=== PATIENT | female | born 1955 | race Caucasian/White ===

== ENCOUNTER 2017-10-07 18:46 | Emergency (ER) | payer OTHER ==
[2017-10-07] MEDS ORDERED: KETOROLAC 30 MG/ML INJ ONE (20:54)
--- NOTE | 2017-10-07 21:00 | ER ---
Nurse's Notes [facility] Name: Prabha Barnes Age: 62 yrs Sex: Female : 1955 Arrival Date: 10/07/2017 Time: 18:55 Bed 30 Private MD: Diagnosis: Pain in left knee Presentation: 10/07 19:09 Presenting complaint: Patient states: LEFT knee pain and swelling x 1 month. Recently hb seen at [facility] for same s/s, told it was arthritis. Immobilizer in place. Transition of care: patient was not received from another setting of care. Onset of symptoms is unknown. Initial Sepsis Screen: Does the patient meet any 2 criteria? No. Patient's initial sepsis screen is negative. Does the patient have a suspected source of infection? No. Patient's initial sepsis screen is negative. Care prior to arrival: None. 19:09 Method Of Arrival: Wheelchair hb 19:09 Acuity: CAITLYN 4 hb Historical: - Allergies: 19:12 NKDA; hb - Home Meds: 19:12 aspirin 81 mg Oral chew 1 tab once daily [Active]; citalopram 40 mg tab 1 tab once hb daily [Active]; docusate sodium 100 mg Oral cap 1 cap once daily [Active]; glimepiride 4 mg Oral tab 1 tab once daily [Active]; Linzess 290 mcg Oral cap 1 cap once daily [Active]; Lipitor 40 mg Oral tab [Active]; Plavix Oral 1 tab once daily [Active]; valsartan 80 mg Oral tab 1 tab once daily [Active]; - PMHx: 19:12 constipation; Diabetes - NIDDM; Depression; TIA; hb - PSHx: 19:12 Right wrist; Heart Cath; ACDF; hb - Immunization history:: Adult Immunizations up to date. - Social history:: Smoking status: Patient/guardian denies using tobacco. Screenin:11 Abuse screen: Denies threats or abuse. Denies injuries from another. Nutritional aj screening: No deficits noted. Tuberculosis screening: No symptoms or risk factors identified. Fall Risk None identified. Assessment: 20:11 General: Appears in no apparent distress. comfortable, Behavior is calm, cooperative, aj appropriate for age. Pain: Complains of pain in left knee. Neuro: Level of Consciousness is awake, alert, obeys commands, Oriented to person, place, time, situation, Appropriate for age. Respiratory: Airway is patent Trachea midline Respiratory effort is even, unlabored, Respiratory pattern is regular, symmetrical. Derm: Skin is intact, is healthy with good turgor, Skin is pink, warm \T\ dry. normal. Musculoskeletal: Circulation, motion, and sensation intact. Range of motion: intact in all extremities, Swelling present in left knee Reports pain in left knee. Vital Signs: 19:10 BP 138 / 70; Pulse 84; Resp 20; Temp 98.5; Pulse Ox 97% ; Weight 112.49 kg; Height 5 hb ft. 2 in. (157.48 cm); Pain 8/10; 21:15 BP 129 / 78; Pulse 81; Resp 18; Pulse Ox 99% on R/A; aj 19:10 Body Mass Index 45.36 (112.49 kg, 157.48 cm) hb ED Course: 18:55 Patient arrived in ED. al2 19:10 Triage completed. hb 19:12 Arm band placed on right wrist. hb 19:56 Jaja Brewer, RN is Primary Nurse. aj 20:11 Patient has correct armband on for positive identification. aj 20:11 No provider procedures requiring assistance completed. Patient did not have IV access aj during this emergency room visit. 20:20 Curly Agosto MD is Attending Physician. tw4 20:59 Farhat Fitzgerald MD is Referral Physician. tw4 21:03 Knee immobilizer applied on left knee. aj 21:15 Crutch training done. aj Administered Medications: 21:02 Drug: TORadol 60 mg Route: IM; Site: right gluteus; aj 21:16 Follow up: Response: Pain is decreased aj Outcome: 20:59 Discharge ordered by . tw4 21:03 Discharged to home ambulatory, with family. aj 21:03 Condition: good 21:03 Discharge instructions given to patient, family, Instructed on discharge instructions, follow up and referral plans. medication usage, Demonstrated understanding of instructions, follow-up care, medications, Prescriptions given X 1. 21:16 Patient left the ED. aj Signatures: Jaja Brewer, ANKITA RN Lindy Chacon RN RN hb Love, Angelica al2 Curly Agosto MD MD tw4
--- NOTE | 2017-10-07 21:00 | EDPHYS ---
Physician Documentation [facility] Name: Prabha Barnes Age: 62 yrs Sex: Female : 1955 Arrival Date: 10/07/2017 Time: 18:55 Bed 30 Private MD: ED Physician Curly Agosto HPI: 10/07 21:15 This 62 yrs old Female presents to ER via Wheelchair with complaints of Knee tw4 Pain. 21:15 The patient presents with decreased range of motion, pain, that is chronic. The tw4 complaints affect the left knee. Onset: The symptoms/episode began/occurred today. Modifying factors: The symptoms are alleviated by nothing. the symptoms are aggravated by nothing. Associated signs and symptoms: The patient has no apparent associated signs or symptoms. Treatment prior to arrival includes: no previous treatment. The patient has not experienced similar symptoms in the past. Historical: - Allergies: 19:12 NKDA; hb - Home Meds: 19:12 aspirin 81 mg Oral chew 1 tab once daily [Active]; citalopram 40 mg tab 1 tab once hb daily [Active]; docusate sodium 100 mg Oral cap 1 cap once daily [Active]; glimepiride 4 mg Oral tab 1 tab once daily [Active]; Linzess 290 mcg Oral cap 1 cap once daily [Active]; Lipitor 40 mg Oral tab [Active]; Plavix Oral 1 tab once daily [Active]; valsartan 80 mg Oral tab 1 tab once daily [Active]; - PMHx: 19:12 constipation; Diabetes - NIDDM; Depression; TIA; hb - PSHx: 19:12 Right wrist; Heart Cath; ACDF; hb - Immunization history:: Adult Immunizations up to date. - Social history:: Smoking status: Patient/guardian denies using tobacco. ROS: 21:15 Constitutional: Negative for fever, chills, and weight loss, Cardiovascular: Negative tw4 for chest pain, palpitations, and edema, Respiratory: Negative for shortness of breath, cough, wheezing, and pleuritic chest pain, Abdomen/GI: Negative for abdominal pain, nausea, vomiting, diarrhea, and constipation. 21:15 MS/extremity: Positive for pain. Exam: 21:15 Constitutional: This is a well developed, well nourished patient who is awake, alert, tw4 and in no acute distress. Head/Face: Normocephalic, atraumatic. Chest/axilla: Normal chest wall appearance and motion. Nontender with no deformity. No lesions are appreciated. Cardiovascular: Regular rate and rhythm with a normal S1 and S2. No gallops, murmurs, or rubs. Normal PMI, no JVD. No pulse deficits. Respiratory: Lungs have equal breath sounds bilaterally, clear to auscultation and percussion. No rales, rhonchi or wheezes noted. No increased work of breathing, no retractions or nasal flaring. Abdomen/GI: Soft, non-tender, with normal bowel sounds. No distension or tympany. No guarding or rebound. No evidence of tenderness throughout. 21:15 Musculoskeletal/extremity: Extremities: noted in the left knee: pain, ROM: limited active range of motion, limited passive range of motion, limited active range of motion due to pain, limited passive range of motion due to pain, Circulation is intact in all extremities. Joints: the left knee displays limited range of motion, painful range of motion, swelling, tenderness, Weight bearing: can bear weight with assistance only. Vital Signs: 19:10 BP 138 / 70; Pulse 84; Resp 20; Temp 98.5; Pulse Ox 97% ; Weight 112.49 kg; Height 5 hb ft. 2 in. (157.48 cm); Pain 8/10; 21:15 BP 129 / 78; Pulse 81; Resp 18; Pulse Ox 99% on R/A; aj 19:10 Body Mass Index 45.36 (112.49 kg, 157.48 cm) hb MDM: 20:20 Patient medically screened. tw4 21:15 Differential diagnosis: dislocation, contusion, tendonitis. Data reviewed: vital signs, tw4 nurses notes. Counseling: I had a detailed discussion with the patient and/or guardian regarding: the historical points, exam findings, and any diagnostic results supporting the discharge/admit diagnosis. Medication response: Toradol markedly relieved the patient's pain. Response to treatment: the patient's symptoms have markedly improved after treatment, and as a result, I will discharge patient. Special discussion: I discussed with the patient/guardian in detail that at this point there is no indication for admission to the hospital. It is understood, however, that if the symptoms persist or worsen the patient needs to return immediately for re-evaluation. 10/07 20:45 Order name: Knee Immobilizer; Complete Time: 21:03 tw4 10/07 21:16 Order name: Crutches; Complete Time: 21:16 aj Administered Medications: 21:02 Drug: TORadol 60 mg Route: IM; Site: right gluteus; aj 21:16 Follow up: Response: Pain is decreased aj Disposition: 10/07/17 20:59 Discharged to Home. Impression: Pain in left knee. - Condition is Stable. - Discharge Instructions: Arthralgia, Arthritis, Nonspecific, Knee Pain, [id number]. - Prescriptions for Diclofenac Sodium 75 mg Oral Tablet Sustained Release - take 1 tablet by ORAL route 2 times per day; 30 tablet. - Medication Reconciliation Form, Thank You Letter, Antibiotic Education, Prescription Opioid Use form. - Follow up: Private Physician; When: As needed; Reason: Recheck today's complaints, Continuance of care, Re-evaluation by your physician. Follow up: Farhat Fitzgerald MD; When: As needed; Reason: Recheck today's complaints, Continuance of care, Re-evaluation by your physician. - Problem is new. - Symptoms have improved. Signatures: Jaja Brewer RN RN aj Baxter, Heather, RN RN hb Wadley, Terrence, MD MD tw4 Corrections: (The following items were deleted from the chart) 21:16 20:59 10/07/2017 20:59 Discharged to Home. Impression: Pain in left knee. Condition is aj Stable. Forms are Medication Reconciliation Form, Thank You Letter, Antibiotic Education, Prescription Opioid Use. Follow up: Private Physician; When: As needed; Reason: Recheck today's complaints, Continuance of care, Re-evaluation by your physician. Follow up: Farhat Fitzgerald; When: As needed; Reason: Recheck today's complaints, Continuance of care, Re-evaluation by your physician. Problem is new. Symptoms have improved. tw4
[2017-10-07 22:20] VITALS: TEMP 98.5
[2017-10-07 22:22] VITALS: BP 129/78; O2SAT 99
== END 2017-10-07 21:16 | disposition home or self-care (01) ==
LOC: ER 18:46
DX: M25.562 Pain in left knee (principal); E11.9 Type 2 diabetes mellitus without complications; Z79.01 Long term (current) use of anticoagulants; Z79.82 Long term (current) use of aspirin; Z86.73 Personal history of transient ischemic attack (TIA), and cerebral infarction without residual deficits
CPT/HCPCS: 96372; 99283

== ENCOUNTER 2018-01-15 16:44 | Emergency (ER) | payer OTHER ==
--- NOTE | 2018-01-15 17:34 | RAD REPORT ---
EXAM DESCRIPTION: CT - Head Brain Wo Cont - 01/15/2018 5:16 pm CLINICAL HISTORY: Slurred speech COMPARISON: None. TECHNIQUE: Axial 5 mm thick images of the head were obtained without IV contrast. All CT scans are performed using dose optimization technique as appropriate and may include automated exposure control or mA/KV adjustment according to patient size. FINDINGS: No intracranial hemorrhage, mass, edema or shift of mid-line structures. No acute infarcti on changes seen. No abnormal extra-axial fluid collections. Ventricles are normal. Mastoid air cells and visualized portions of the paranasal sinuses are clear. No acute bony findings. IMPRESSION: Negative non-contrast CT head examination.
--- NOTE | 2018-01-15 17:35 | RAD REPORT ---
EXAM DESCRIPTION: RAD - Chest Single View - 01/15/2018 5:26 pm CLINICAL HISTORY: Weakness, shortness of breath, slurred speech COMPARISON: August 2016 TECHNIQUE: AP portable chest image was obtained 1715 hour . FINDINGS: Lungs are clear. Lung markings are similar to comparison. Heart and vasculature are normal . No measurable pleural effusion and no pneumothorax. No gross bony abnormality seen. No acute aortic findings suspected. IMPRESSION: No acute cardiopulmonary process. No significant interval change.
[2018-01-15] MEDS ORDERED: ASPIRIN 81 MG CHEWABLE TABLET ONE (18:01)
--- NOTE | 2018-01-15 18:06 | ER ---
Nurse's Notes [facility] Name: Prabha Barnes Age: 62 yrs Sex: Female : 1955 Arrival Date: 01/15/2018 Time: 16:46 Bed 3 Private MD: MARCI LONG Diagnosis: Transient cerebral ischemic attack, unspecified Presentation: 01/15 17:00 Presenting complaint: Patient states: "I had some trouble getting my words out and aj remembering some things." Symptoms started at 1600 but have resolved. Patient denied numbness or tingling. Spouse reports patient has returned to baseline. Transition of care: patient was not received from another setting of care. Onset of symptoms was January 15, 2018 at 16:00. Risk Assessment: Do you want to hurt yourself or someone else? Patient reports no desire to harm self or others. Initial Sepsis Screen: Does the patient meet any 2 criteria? No. Patient's initial sepsis screen is negative. Does the patient have a suspected source of infection? No. Patient's initial sepsis screen is negative. Care prior to arrival: None. 17:00 Method Of Arrival: Ambulatory 17:00 Acuity: CAITLYN 3 aj Triage Assessment: 17:03 General: Appears in no apparent distress. comfortable, Behavior is calm, cooperative, aj appropriate for age. Pain: Denies pain. Neuro: Level of Consciousness is awake, alert, obeys commands, Oriented to person, place, time, situation, Appropriate for age Motor Coach Supervisor are equal bilaterally Moves all extremities. Full function Gait is steady, Speech is normal, Facial symmetry appears normal, Pupils are PERRLA. Respiratory: Airway is patent Respiratory effort is even, unlabored, Respiratory pattern is regular, symmetrical. Derm: Skin is intact, is healthy with good turgor, Skin is pink, warm \\T\\ dry. normal. Historical: - Allergies: 17:03 NKDA; aj - Home Meds: 17:03 aspirin 81 mg Oral chew 1 tab once daily [Active]; citalopram 40 mg tab 1 tab once aj daily [Active]; docusate sodium 100 mg Oral cap 1 cap once daily [Active]; glimepiride 4 mg Oral tab 1 tab once daily [Active]; Linzess 290 mcg Oral cap 1 cap once daily [Active]; Lipitor 40 mg Oral tab [Active]; Plavix Oral 1 tab once daily [Active]; valsartan 80 mg Oral tab 1 tab once daily [Active]; - PMHx: 17:03 constipation; Depression; Diabetes - NIDDM; TIA; aj - PSHx: 17:03 Right wrist; Heart Cath; ACDF; aj - Immunization history:: Adult Immunizations up to date. - Social history:: Smoking status: Patient/guardian denies using tobacco. - Ebola Screening: : Patient negative for fever greater than or equal to 101.5 degrees Fahrenheit, and additional compatible Ebola Virus Disease symptoms Patient denies exposure to infectious person Patient denies travel to an Ebola-affected area in the 21 days before illness onset No symptoms or risks identified at this time. Screenin:40 Abuse screen: Denies threats or abuse. Denies injuries from another. Nutritional jl7 screening: No deficits noted. Tuberculosis screening: No symptoms or risk factors identified. The patient has not been NPO before screening. The patient is currently on the following diet: Regular The patient is alert, able to follow commands. The patient does not exhibit slurred or garbled speech The patient is not exhibiting difficulty speaking. The patient does not exhibit difficulty understanding words. The patient is able to swallow own secretions with no drooling or need for suction. Patient tolerated one teaspoon of water. No drooling, immediate coughing, gurgling, or clearing of the throat was noted. The patient tolerated 90mL of water. No drooling, immediate coughing, gurgling, or clearing of the throat was noted. The patient passed the bedside swallow screening. Oral medications may be given as ordered. Contact Physician for further diet orders. Provider notified of bedside swallow screening results: Jose WALLS. Fall Risk No fall in past 12 months (0 pts). Secondary diagnosis (15 points) TIA, IV access (20 points). Ambulatory Aid- None/Bed Rest/Nurse Assist (0 pts). Gait- Normal/Bed Rest/Wheelchair (0 pts) Mental Status- Oriented to own ability (0 pts). Total Diaz Fall Scale indicates Low Risk Score (25-44 pts). Fall prevention measures have been instituted. Side Rails Up X 2 Placed close to Nursing Station Frequent Obs/Assesments occuring Family Present and informed to notify staff if they need to leave bedside As available Patient and Family Educated on Fall Prevention Program and strategies. Assessment: 17:15 General: Appears in no apparent distress. comfortable, Behavior is calm, cooperative, jl7 appropriate for age. Pain: Denies pain. Neuro: Level of Consciousness is awake, alert, obeys commands, Oriented to person, place, time, situation, Motor Coach Supervisor are equal bilaterally Moves all extremities. Gait is steady, Speech is normal, Facial symmetry appears normal. Cardiovascular: Heart tones S1 S2 present Patient's skin is warm and dry. Respiratory: Airway is patent Respiratory effort is even, unlabored, Respiratory pattern is regular, symmetrical, Breath sounds are clear bilaterally. GI: No signs and/or symptoms were reported involving the gastrointestinal system. : No signs and/or symptoms were reported regarding the genitourinary system. EENT: No signs and/or symptoms were reported regarding the EENT system. Derm: Skin is pink, warm \\T\\ dry. Musculoskeletal: No signs and/or symptoms reported regarding the musculoskeletal system. 18:15 Reassessment: No changes from previously documented assessment. Patient and/or family jl7 updated on plan of care and expected duration. Pain level reassessed. Patient is alert, oriented x 3, equal unlabored respirations, skin warm/dry/pink. 19:25 Reassessment: Patient appears in no apparent distress at this time. Patient and/or iw family updated on plan of care and expected duration. Pain level reassessed. Patient is alert, oriented x 3, equal unlabored respirations, skin warm/dry/pink. [facility] at bedside to transport pt. Pt refuses to be transferred to [facility], states she had a very bad experience there one time and they almost killed her. Jose Samano notified, pt advised that we will have to get acceptance from another [place] or hospital and that will delay her transfer, pt verbalizes understanding, is willing to wait for acceptance to another facility. [facility] leaving now. 20:12 Reassessment: Report called to Latisha Cardenas RN at [facility]. lp1 Vital Signs: 17:03 BP 153 / 77; Pulse 79; Resp 17; Temp 97.5; Pulse Ox 97% on R/A; Weight 113.4 kg; Height aj 5 ft. 2 in. (157.48 cm); 18:00 BP 149 / 72; Pulse 67; Resp 14; Pulse Ox 97% on R/A; jl7 19:00 BP 137 / 78; Pulse 70; Resp 16; Pulse Ox 96% on R/A; jl7 20:01 BP 153 / 87; Pulse 76; Resp 20; Pulse Ox 98% on R/A; Pain 0/10; lp1 17:03 Body Mass Index 45.73 (113.40 kg, 157.48 cm) NIH Stroke Scale Scores: 17:40 NIHSS Score: 0 jl7 17:45 NIHSS Score: 0 ED Course: 16:46 Patient arrived in ED. mr 16:46 MARCI LONG is Private Physician. mr 16:54 Jose Samano PA is PHCP. cp 16:54 Michael Schwab MD is Attending Physician. cp 16:58 Escobar Edmond, ANKITA is Primary Nurse. jl7 17:02 Triage completed. aj 17:03 Arm band placed on left wrist. Patient placed in an exam room. aj 17:15 CT completed. Patient tolerated procedure well. Patient moved to CT via stretcher. wv Patient moved back from CT. 17:15 Patient has correct armband on for positive identification. Placed in gown. Bed in low jl7 position. Call light in reach. Side rails up X2. senior analytic consultant on. Pulse ox on. NIBP on. Warm blanket given. 17:16 CT Head Brain wo Cont In Process Unspecified. EDMS 17:23 X-ray completed. Patient tolerated procedure well. bb2 17:24 XRAY Chest (1 view) In Process Unspecified. EDMS 17:35 EKG done, by fire control technician b. reviewed by Jose WALLS. 3 17:45 Initial lab(s) drawn, by wv, sent to lab. Inserted saline lock: 22 gauge in right jl7 forearm, using aseptic technique. Blood collected. 19:13 Basic Metabolic Panel Sent. jl7 20:01 No provider procedures requiring assistance completed. lp1 20:12 Patient transferred, IV remains in place. lp1 Administered Medications: 17:58 Drug: Aspirin 81 mg Route: PO; jl7 19:13 Follow up: Response: No adverse reaction jl7 Point of Care Testing: Blood Glucose: 17:40 Blood Glucose: 81 mg/dL; jl7 Ranges: Outcome: 18:06 ER care complete, transfer ordered by . cp 20:01 Condition: stable lp1 20:01 Instructed on the need for transfer. 20:12 Transferred by ground EMS to [facility], Transfer form completed. X-rays sent lp1 w/ patient. 20:12 Patient left the ED. lp1 NIH Stroke Scale - NIH Stroke Score Date: 01/15/2018 Time: 17:40 Total Score = 0 1a. Level of Consciousness (LOC) - 0(Alert) 1b. Level of Consciousness (LOC) (Year \\T\\ Age) - 0(Both) 1c. LOC Commands (Open \\T\\ Closes Eyes/Water Resource Agent) - 0(Both) 2. Best Gaze (Lateral Gaze Paresis) - 0(Normal) 3. Visual Field Loss - 0(No visual loss) 4. Facial Palsy - 0(Normal) 5a. Left Arm: Motor (10-second hold) - 0(No drift) 5b. Right Arm: Motor (10-second hold) - 0(No drift) 6a. Left Leg: Motor (5-second hold - always test supine) - 0(No drift) 6b. Right Leg: Motor (5-second hold - always test supine) - 0(No drift) 7. Limb Ataxia (finger/nose \\T\\ heel/duggan - test with eyes open) - 0(Absent) 8. Sensory Loss (pinprick arms/legs/face) - 0(Normal) 9. Best Language: Aphasia (description/naming/reading) - 0(No aphasia) 10. Dysarthria (speech clarity - read or repeat words) - 0(Normal) 11. Extinction and Inattention (visual/tactile/auditory/spatial/personal) - 0(No abnormality) Initials: jl7 NIH Stroke Scale - NIH Stroke Score Date: 01/15/2018 Time: 17:45 Total Score = 0 1a. Level of Consciousness (LOC) - 0(Alert) 1b. Level of Consciousness (LOC) (Year \\T\\ Age) - 0(Both) 1c. LOC Commands (Open \\T\\ Closes Eyes/Water Resource Agent) - 0(Both) 2. Best Gaze (Lateral Gaze Paresis) - 0(Normal) 3. Visual Field Loss - 0(No visual loss) 4. Facial Palsy - 0(Normal) 5a. Left Arm: Motor (10-second hold) - 0(No drift) 5b. Right Arm: Motor (10-second hold) - 0(No drift) 6a. Left Leg: Motor (5-second hold - always test supine) - 0(No drift) 6b. Right Leg: Motor (5-second hold - always test supine) - 0(No drift) 7. Limb Ataxia (finger/nose \\T\\ heel/duggan - test with eyes open) - 0(Absent) 8. Sensory Loss (pinprick arms/legs/face) - 0(Normal) 9. Best Language: Aphasia (description/naming/reading) - 0(No aphasia) 10. Dysarthria (speech clarity - read or repeat words) - 0(Normal) 11. Extinction and Inattention (visual/tactile/auditory/spatial/personal) - 0(No abnormality) Initials: cp Signatures: Dispatcher [employer] Jaja Smith, RN Tyesha Milan Irene, RN Pat Augustin RN RN lp1 Jose Samano PA PA cp Jordan, Nathan nj Leal, Jahala, RN RN jl7 Radha Patterson2 Julienne Darling 3
--- NOTE | 2018-01-15 18:06 | EDPHYS ---
Physician Documentation [facility] Name: Prabha Barnes Age: 62 yrs Sex: Female : 1955 Arrival Date: 01/15/2018 Time: 16:46 Bed 3 Private MD: MARCI LONG ED Physician Michael Schwab HPI: 01/15 17:09 This 62 yrs old Female presents to ER via Ambulatory with complaints of cp Confusion. 17:09 The patient's problem is reported as visual difficulty, blurred vision, weakness, that cp is generalized, aphasia. Onset: The symptoms/episode began/occurred today, at 16:00. Duration: This was a single incident, now resolved. 17:09 Patient's baseline: Neuro: alert and fully oriented, Motor: no deficits, Ambulation: cp walks without assistance, Speech: normal, The patient has a previous history of TIA. Historical: - Allergies: 17:03 NKDA; aj - Home Meds: 17:03 aspirin 81 mg Oral chew 1 tab once daily [Active]; citalopram 40 mg tab 1 tab once aj daily [Active]; docusate sodium 100 mg Oral cap 1 cap once daily [Active]; glimepiride 4 mg Oral tab 1 tab once daily [Active]; Linzess 290 mcg Oral cap 1 cap once daily [Active]; Lipitor 40 mg Oral tab [Active]; Plavix Oral 1 tab once daily [Active]; valsartan 80 mg Oral tab 1 tab once daily [Active]; - PMHx: 17:03 constipation; Depression; Diabetes - NIDDM; TIA; aj - PSHx: 17:03 Right wrist; Heart Cath; ACDF; aj - Immunization history:: Adult Immunizations up to date. - Social history:: Smoking status: Patient/guardian denies using tobacco. - Ebola Screening: : Patient negative for fever greater than or equal to 101.5 degrees Fahrenheit, and additional compatible Ebola Virus Disease symptoms Patient denies exposure to infectious person Patient denies travel to an Ebola-affected area in the 21 days before illness onset No symptoms or risks identified at this time. ROS: 17:12 All other systems are negative. cp Exam: 17:45 Radiologist reports: no acute findings cp 17:45 Head/Face: Normocephalic, atraumatic. Eyes: Pupils equal round and reactive to light, extra-ocular motions intact. Lids and lashes normal. Conjunctiva and sclera are non-icteric and not injected. Cornea within normal limits. Periorbital areas with no swelling, redness, or edema. ENT: Nares patent. No nasal discharge, no septal abnormalities noted. Tympanic membranes are normal and external auditory canals are clear. Oropharynx with no redness, swelling, or masses, exudates, or evidence of obstruction, uvula midline. Mucous membranes moist. Neck: Trachea midline, no thyromegaly or masses palpated, and no cervical lymphadenopathy. Supple, full range of motion without nuchal rigidity, or vertebral point tenderness. No Meningismus. 17:45 Constitutional: The patient appears in no acute distress, alert, awake, non-diaphoretic, non-toxic, well developed, well nourished. 17:45 Chest/axilla: Inspection: normal, Palpation: is normal, no crepitus, no tenderness. 17:45 Cardiovascular: Rate: normal, Rhythm: regular, Pulses: Pulses are 2+ in right radial artery and left radial artery. Heart sounds: murmur, not appreciated, rub, not appreciated, gallop, not appreciated, Edema: is not appreciated, JVD: is not appreciated. 17:45 Respiratory: the patient does not display signs of respiratory distress, Respirations: cp normal, no use of accessory muscles, no retractions, no splinting, no tachypnea, labored breathing, is not present, Breath sounds: are clear throughout, no decreased breath sounds, no stridor, no wheezing. 17:45 Abdomen/GI: Inspection: abdomen appears normal, Bowel sounds: active, all quadrants, Palpation: abdomen is soft and non-tender, in all quadrants, rebound tenderness, is not appreciated, voluntary guarding, is not appreciated, involuntary guarding, is not appreciated. 17:45 Back: pain, is absent, ROM is normal. 17:45 Skin: cellulitis, is not appreciated, no rash present. 17:45 Neuro: Orientation: to person, place \T\ time. Mentation: lucid, able to follow commands, Cerebellar function: is grossly normal, Motor: moves all fours, strength is normal, Sensation: no obvious gross deficits. Vital Signs: 17:03 BP 153 / 77; Pulse 79; Resp 17; Temp 97.5; Pulse Ox 97% on R/A; Weight 113.4 kg; Height aj 5 ft. 2 in. (157.48 cm); 18:00 BP 149 / 72; Pulse 67; Resp 14; Pulse Ox 97% on R/A; jl7 19:00 BP 137 / 78; Pulse 70; Resp 16; Pulse Ox 96% on R/A; jl7 20:01 BP 153 / 87; Pulse 76; Resp 20; Pulse Ox 98% on R/A; Pain 0/10; lp1 17:03 Body Mass Index 45.73 (113.40 kg, 157.48 cm) aj NIH Stroke Scale Scores: 17:40 NIHSS Score: 0 jl7 17:45 NIHSS Score: 0 cp MDM: 16:57 Patient medically screened. cp 17:06 ED course: VSS. Patient is not a candidate for tpa as patient reports symptoms have cp resolved. 17:30 Differential diagnosis: CVA, TIA, metabolic disorder, drug effects. cp 18:04 Data reviewed: vital signs, EKG. cp 18:05 Counseling: I had a detailed discussion with the patient and/or guardian regarding: the cp historical points, exam findings, and any diagnostic results supporting the discharge/admit diagnosis, the presence of at least one elevated blood pressure reading (>120/80) during this emergency department visit, radiology results, the need to transfer to another facility, [facility] does not immediately have the required specialist. 01/15 17:08 Order name: Basic Metabolic Panel cp 01/15 17:08 Order name: CBC with Diff cp 01/15 17:08 Order name: Ckmb cp 01/15 17:08 Order name: CPK cp 01/15 17:08 Order name: LFT's cp 01/15 17:08 Order name: Magnesium cp 01/15 17:08 Order name: NT PRO-BNP cp 01/15 17:08 Order name: PT-INR cp 01/15 17:08 Order name: Ptt, Activated cp 01/15 17:08 Order name: Troponin (emerg Dept Use Only) cp 01/15 17:08 Order name: XRAY Chest (1 view); Complete Time: 17:36 cp 01/15 17:08 Order name: CT Head Brain wo Cont; Complete Time: 17:36 cp 01/15 17:08 Order name: Basic Metabolic Panel EDMS 01/15 17:08 Order name: EKG; Complete Time: 17:08 01/15 17:08 Order name: Cardiac monitoring; Complete Time: 18:00 01/15 17:08 Order name: EKG - Nurse/Tech; Complete Time: 18:00 01/15 17:08 Order name: IV Saline Lock; Complete Time: 17:59 cp 01/15 17:08 Order name: Labs collected and sent; Complete Time: 17:59 cp 01/15 17:08 Order name: O2 Per Protocol; Complete Time: 17:59 cp 01/15 17:08 Order name: O2 Sat Monitoring; Complete Time: 17:59 cp Administered Medications: 17:58 Drug: Aspirin 81 mg Route: PO; jl7 19:13 Follow up: Response: No adverse reaction jl7 Point of Care Testing: Blood Glucose: 17:40 Blood Glucose: 81 mg/dL; jl7 Ranges: Critical Glucose Levels:Adult <50 mg/dl or >400 mg/dl <40 mg/dl or >180 mg/dl Disposition: 18:15 Chart complete. cp Disposition: 01/15/18 18:06 Transfer ordered to [facility]. Diagnosis is Transient cerebral ischemic attack, unspecified. - Reason for transfer: Higher level of care. - Accepting physician is DR River and DR Carbajal. - Condition is Stable. - Problem is new. - Symptoms are resolved. NIH Stroke Scale - NIH Stroke Score Date: 01/15/2018 Time: 17:40 Total Score = 0 1a. Level of Consciousness (LOC) - 0(Alert) 1b. Level of Consciousness (LOC) (Year \T\ Age) - 0(Both) 1c. LOC Commands (Open \T\ Closes Eyes/Pillowcase Sewer) - 0(Both) 2. Best Gaze (Lateral Gaze Paresis) - 0(Normal) 3. Visual Field Loss - 0(No visual loss) 4. Facial Palsy - 0(Normal) 5a. Left Arm: Motor (10-second hold) - 0(No drift) 5b. Right Arm: Motor (10-second hold) - 0(No drift) 6a. Left Leg: Motor (5-second hold - always test supine) - 0(No drift) 6b. Right Leg: Motor (5-second hold - always test supine) - 0(No drift) 7. Limb Ataxia (finger/nose \T\ heel/duggan - test with eyes open) - 0(Absent) 8. Sensory Loss (pinprick arms/legs/face) - 0(Normal) 9. Best Language: Aphasia (description/naming/reading) - 0(No aphasia) 10. Dysarthria (speech clarity - read or repeat words) - 0(Normal) 11. Extinction and Inattention (visual/tactile/auditory/spatial/personal) - 0(No abnormality) Initials: jl7 NIH Stroke Scale - NIH Stroke Score Date: 01/15/2018 Time: 17:45 Total Score = 0 1a. Level of Consciousness (LOC) - 0(Alert) 1b. Level of Consciousness (LOC) (Year \T\ Age) - 0(Both) 1c. LOC Commands (Open \T\ Closes Eyes/Pillowcase Sewer) - 0(Both) 2. Best Gaze (Lateral Gaze Paresis) - 0(Normal) 3. Visual Field Loss - 0(No visual loss) 4. Facial Palsy - 0(Normal) 5a. Left Arm: Motor (10-second hold) - 0(No drift) 5b. Right Arm: Motor (10-second hold) - 0(No drift) 6a. Left Leg: Motor (5-second hold - always test supine) - 0(No drift) 6b. Right Leg: Motor (5-second hold - always test supine) - 0(No drift) 7. Limb Ataxia (finger/nose \T\ heel/duggan - test with eyes open) - 0(Absent) 8. Sensory Loss (pinprick arms/legs/face) - 0(Normal) 9. Best Language: Aphasia (description/naming/reading) - 0(No aphasia) 10. Dysarthria (speech clarity - read or repeat words) - 0(Normal) 11. Extinction and Inattention (visual/tactile/auditory/spatial/personal) - 0(No abnormality) Initials: cp Addendum: 01/19/2018 01:33 Co-signature as Attending Physician, Michael Schwab MD. rn Signatures: Dispatcher [employer] EDJaja Pichardo RN RN aj Nieto, Roman, MD MD rn Pena, Laura, RN RN lp1 Jose Samano PA PA cp Leal, Jahala, RN RN jl7 Corrections: (The following items were deleted from the chart) 01/15 20:12 18:06 01/15/2018 18:06 Transfer ordered to [address] Diagnosis is Transient cerebral ischemic attack, unspecified. Reason for transfer: Higher level of care. Accepting physician is DR River and DR Carbajal. Condition is Stable. Problem is new. Symptoms are resolved. cp
[2018-01-15 18:16] LABS: Absolute Lymphocytes (CBC) 3.8 K/uL (0.7-4.9); Absolute Monocytes 0.6 K/uL (0.1-1.3); Basophils % 0.3 % (0-1.3); Eosinophils % 2.6 % (0-4.4); Hematocrit 38.6 % (36.0-45.0); Lymphocytes % 35.5 % (15.3-44.8); MCH 27.2 pg (27.0-35.0); MCV 83.6 fL (80-100); MPV 8.4 fL (7.6-11.3); Monocytes % 5.4 % (3.3-12.3); RBC Red Blood Cell Count 4.62 M/uL (3.86-4.86)
[2018-01-15 18:18] LABS: Protime INR 0.97
[2018-01-15 18:24] LABS: ALT/SGPT 52 U/L (12-78); AST/SGOT 32 U/L (15-37); Albumin 3.5 g/dL (3.4-5.0); Alkaline Phosphatase 96 U/L (45-117); BUN Blood Urea Nitrogen 14 mg/dL (7-18); Bicarbonate 26 mmol/L (21-32); Bilirubin Direct 0.1 mg/dL (0-0.2); Bilirubin Total 0.4 mg/dL (0.2-1.0); CKMB Creatine Kinase MB < 1.0 ng/mL (0.3-3.6); Creatine Phosphokinase 67 U/L (26-192); Glucose Level 137 mg/dL (74-106); Magnesium 1.9 mg/dL (1.8-2.4); NT PRO-BNP 82 pg/mL (<125); Potassium 3.9 mmol/L (3.5-5.1); Protein, Total 7.5 g/dL (6.4-8.2); Sodium Level 140 mmol/L (136-145)
[2018-01-15 20:24] VITALS: TEMP 97.5
[2018-01-15 20:27] VITALS: BP 153/87; O2SAT 98
--- NOTE | 2018-01-16 16:31 | EKG ---
Test Date: 2018-01-15 Test Time: 17:28:50 Bag Mender: ENDER MEASUREMENT RESULTS: Intervals: Rate: 73 WA: 156 QRSD: 82 QT: 428 QTc: 471 Campus: P: 44 WA: 156 QRS: 15 T: 46 INTERPRETIVE STATEMENTS: Normal sinus rhythm Normal ECG Compared to ECG 09/07/2016 08:24:36 No significant changes Electronically Signed On 01-16-18 16:27:55 CDT by Mario Sal
== END 2018-01-15 20:12 | disposition short-term general hospital (02) ==
LOC: ER 16:44
DX: G45.9 Transient cerebral ischemic attack, unspecified (principal); E11.9 Type 2 diabetes mellitus without complications; F32.9 Major depressive disorder, single episode, unspecified; Z79.01 Long term (current) use of anticoagulants; Z79.82 Long term (current) use of aspirin
CPT/HCPCS: 36415; 70450; 71045; 80048; 80076; 82550; 82553; 82962; 83735; 83880; 84484; 85025; 85610; 85730; 93005; 99285

== ENCOUNTER 2018-04-25 02:10 | Emergency (ER) | payer OTHER ==
[2018-04-25 02:35] LABS: Urine Blood 3+ (NEG); Urine Glucose 3+ (NEG); Urine Protein 1+ (NEG)
[2018-04-25] MEDS ORDERED: HYDROCODONE/APAP 10/325 TAB ONE (02:42)
[2018-04-25 03:21] LABS: Urine Culture Reflex Order NOT NEEDED; Urine RBC >50 /HPF (NONE SEEN)
[2018-04-25 03:22] LABS: Urine Bacteria 20-50 /HPF (<20)
--- NOTE | 2018-04-25 03:52 | ER ---
Nurse's Notes [facility] Name: Prabha Barnes Age: 62 yrs Sex: Female : 1955 Arrival Date: 04/25/2018 Time: 02:13 Bed 19 Private MD: MARCI LONG Diagnosis: Acute tubulo-interstitial nephritis Presentation: 04/25 02:30 Presenting complaint: Patient states: "Ether I have a bad kidney infection or I am jd3 trying to pass a kidney stones because it is really hurting.". Transition of care: patient was not received from another setting of care. Onset of symptoms was April 25, 2018. Risk Assessment: Do you want to hurt yourself or someone else? Patient reports no desire to harm self or others. Initial Sepsis Screen: Does the patient meet any 2 criteria? No. Patient's initial sepsis screen is negative. Does the patient have a suspected source of infection? No. Patient's initial sepsis screen is negative. Care prior to arrival: None. 02:30 Method Of Arrival: Ambulatory jd3 02:30 Acuity: CAITLYN 3 jd3 Historical: - Allergies: 02:43 NKDA; jd3 - Home Meds: 02:43 aspirin 81 mg Oral chew 1 tab once daily [Active]; citalopram 40 mg tab 1 tab once jd3 daily [Active]; docusate sodium 100 mg Oral cap 1 cap once daily [Active]; Linzess 290 mcg Oral cap 1 cap once daily [Active]; Lipitor 40 mg Oral tab [Active]; Plavix Oral 1 tab once daily [Active]; valsartan 80 mg Oral tab 1 tab once daily [Active]; semaglutide injection [Active]; - PMHx: 02:43 constipation; Depression; Diabetes - NIDDM; TIA; jd3 - PSHx: 02:43 Right wrist; Heart Cath; ACDF; jd3 - Immunization history:: Adult Immunizations up to date, Pneumococcal vaccine is up to date, Flu vaccine is up to date. - Social history:: Smoking status: Patient/guardian denies using tobacco, the patient reports quitting approximately 30 years ago. - Ebola Screening: : Patient negative for fever greater than or equal to 101.5 degrees Fahrenheit, and additional compatible Ebola Virus Disease symptoms. Screenin:47 Abuse screen: Denies threats or abuse. Nutritional screening: No deficits noted. jd3 Tuberculosis screening: No symptoms or risk factors identified. Fall Risk Ambulatory Aid- None/Bed Rest/Nurse Assist (0 pts). Gait- Normal/Bed Rest/Wheelchair (0 pts) Mental Status- Oriented to own ability (0 pts). Total Diaz Fall Scale indicates No Risk (0-24 pts). Assessment: 02:46 General: Appears in no apparent distress. uncomfortable, Behavior is calm, cooperative, jd3 appropriate for age. Pain: Complains of pain in anterior aspect of left lateral abdomen Quality of pain is described as sharp. Neuro: Level of Consciousness is awake, alert, obeys commands, Oriented to person, place, time, situation. Cardiovascular: Capillary refill < 3 seconds Patient's skin is warm and dry. Respiratory: Airway is patent Respiratory effort is even, unlabored, Respiratory pattern is regular, symmetrical. GI: No signs and/or symptoms were reported involving the gastrointestinal system. : Reports burning with urination. EENT: No signs and/or symptoms were reported regarding the EENT system. Derm: Skin is intact, Skin is dry, Skin is normal, Skin temperature is warm. Musculoskeletal: Circulation, motion, and sensation intact. Range of motion: intact in all extremities. 03:29 Reassessment: Patient appears in no apparent distress at this time. Patient and/or jd3 family updated on plan of care and expected duration. Pain level reassessed. Patient is alert, oriented x 3, equal unlabored respirations, skin warm/dry/pink. 04:01 Reassessment: Patient appears in no apparent distress at this time. Patient and/or jd3 family updated on plan of care and expected duration. Pain level reassessed. Patient is alert, oriented x 3, equal unlabored respirations, skin warm/dry/pink. reported understanding of discharge instructions. Vital Signs: 02:43 BP 188 / 91; Pulse 104; Resp 19 S; Temp 98.6(O); Pulse Ox 99% on R/A; Weight 107.95 kg jd3 (R); Height 5 ft. 2 in. (157.48 cm) (R); Pain 8/10; 03:29 BP 160 / 70; Pulse 98; Resp 18 S; Pulse Ox 95% on R/A; jd3 02:43 Body Mass Index 43.53 (107.95 kg, 157.48 cm) jd3 ED Course: 02:13 Patient arrived in ED. am2 02:14 MARCI LONG is Private Physician. am2 02:24 Bismark Hussein MD is Attending Physician. gs 02:27 Urine Microscopic Only Sent. ar5 02:27 Urine Culture Sent. ar5 02:29 Baltazar Andrade RN is Primary Nurse. jd3 02:40 Triage completed. jd3 02:45 Arm band placed on. jd3 02:47 Patient has correct armband on for positive identification. Bed in low position. Call j light in reach. Side rails up X 1. 02:49 CT Stone Protocol In Process Unspecified. EDMS 03:02 CT completed. Patient tolerated procedure well. Patient moved to CT via wheelchair. Patient moved back from CT. 04:00 No provider procedures requiring assistance completed. Patient did not have IV access jd3 during this emergency room visit. Administered Medications: 02:37 Drug: Aurora 10 mg-325 mg 1 tabs Route: PO; jd3 03:50 Follow up: Response: No adverse reaction; Pain is decreased jd3 04:01 Drug: KeFLEX 1000 mg Route: PO; jd3 04:02 Follow up: Response: Medication administered at discharge. jd3 Outcome: 03:50 Discharge ordered by . 04:00 Discharged to home ambulatory, with family. jd3 04:00 Condition: stable 04:00 Discharge instructions given to patient, family, Instructed on discharge instructions, follow up and referral plans. medication usage, Demonstrated understanding of instructions, follow-up care, medications, Prescriptions given X 2. 04:02 Patient left the ED. jd3 Addendum: 04/28/2018 16:31 Addendum: Culture Results: Positive urine culture. No further action required. Bacteria i w sensitive to prescribed antibiotic. Signatures: Dispatcher [employer] EDNM Johnnie Stuart Antonieta Whipple, Jaja Nye RN am2 Bismark Hussein MD MD gs Davies, Jonathon, RN RN Maranda Hernandez ar5
--- NOTE | 2018-04-25 03:53 | EDPHYS ---
Physician Documentation [facility] Name: Prabha Barnes Age: 62 yrs Sex: Female : 1955 Arrival Date: 04/25/2018 Time: 02:13 Bed 19 Private MD: MARCI LONG ED Physician Bismark Hussein HPI: 04/25 03:43 This 62 yrs old Female presents to ER via Ambulatory with complaints of Low gs Back Pain, Pain With Urination. 03:43 The patient complains of pain in the right low back. The pain radiates to the abdomen. gs Onset: The symptoms/episode began/occurred yesterday. Modifying factors: The symptoms are alleviated by nothing. the symptoms are aggravated by nothing. Associated signs and symptoms: Pertinent positives: dysuria, Pertinent negatives: fever. Severity of pain: At its worst the pain was moderate in the emergency department the pain is unchanged. The patient has experienced similar episodes in the past, a few times. The patient has not recently seen a physician. Historical: - Allergies: 02:43 NKDA; jd3 - Home Meds: 02:43 aspirin 81 mg Oral chew 1 tab once daily [Active]; citalopram 40 mg tab 1 tab once jd3 daily [Active]; docusate sodium 100 mg Oral cap 1 cap once daily [Active]; Linzess 290 mcg Oral cap 1 cap once daily [Active]; Lipitor 40 mg Oral tab [Active]; Plavix Oral 1 tab once daily [Active]; valsartan 80 mg Oral tab 1 tab once daily [Active]; semaglutide injection [Active]; - PMHx: 02:43 constipation; Depression; Diabetes - NIDDM; TIA; jd3 - PSHx: 02:43 Right wrist; Heart Cath; ACDF; jd3 - Immunization history:: Adult Immunizations up to date, Pneumococcal vaccine is up to date, Flu vaccine is up to date. - Social history:: Smoking status: Patient/guardian denies using tobacco, the patient reports quitting approximately 30 years ago. - Ebola Screening: : Patient negative for fever greater than or equal to 101.5 degrees Fahrenheit, and additional compatible Ebola Virus Disease symptoms. ROS: 03:43 All other systems are negative. gs Exam: 03:43 Head/Face: Normocephalic, atraumatic. Eyes: Pupils equal round and reactive to light, gs extra-ocular motions intact. Lids and lashes normal. Conjunctiva and sclera are non-icteric and not injected. Cornea within normal limits. Periorbital areas with no swelling, redness, or edema. ENT: Nares patent. No nasal discharge, no septal abnormalities noted. Tympanic membranes are normal and external auditory canals are clear. Oropharynx with no redness, swelling, or masses, exudates, or evidence of obstruction, uvula midline. Mucous membranes moist. Neck: Trachea midline, no thyromegaly or masses palpated, and no cervical lymphadenopathy. Supple, full range of motion without nuchal rigidity, or vertebral point tenderness. No Meningismus. Chest/axilla: Normal chest wall appearance and motion. Nontender with no deformity. No lesions are appreciated. Cardiovascular: Regular rate and rhythm with a normal S1 and S2. No gallops, murmurs, or rubs. Normal PMI, no JVD. No pulse deficits. Respiratory: Lungs have equal breath sounds bilaterally, clear to auscultation and percussion. No rales, rhonchi or wheezes noted. No increased work of breathing, no retractions or nasal flaring. Abdomen/GI: Soft, non-tender, with normal bowel sounds. No distension or tympany. No guarding or rebound. No evidence of tenderness throughout. Skin: Warm, dry with normal turgor. Normal color with no rashes, no lesions, and no evidence of cellulitis. MS/ Extremity: Pulses equal, no cyanosis. Neurovascular intact. Full, normal range of motion. Neuro: Awake and alert, GCS 15, oriented to person, place, time, and situation. Cranial nerves II-XII grossly intact. Motor strength 5/5 in all extremities. Sensory grossly intact. Cerebellar exam normal. Normal gait. 03:43 Constitutional: The patient appears alert, awake, uncomfortable. 03:43 Back: CVA tenderness, that is moderate, is noted on the right. Vital Signs: 02:43 BP 188 / 91; Pulse 104; Resp 19 S; Temp 98.6(O); Pulse Ox 99% on R/A; Weight 107.95 kg jd3 (R); Height 5 ft. 2 in. (157.48 cm) (R); Pain 8/10; 03:29 BP 160 / 70; Pulse 98; Resp 18 S; Pulse Ox 95% on R/A; jd3 02:43 Body Mass Index 43.53 (107.95 kg, 157.48 cm) jd3 MDM: 02:27 Patient medically screened. 03:43 Differential diagnosis: nephrolithiasis, pyelonephritis, UTI. Data reviewed: vital gs signs, nurses notes. Response to treatment: the patient's symptoms have markedly improved after treatment, and as a result, I will discharge patient. 04/25 02:22 Order name: Urine Culture snw 04/25 02:22 Order name: Urine Microscopic Only; Complete Time: 03:52 snw 04/25 02:27 Order name: CT Stone Protocol 04/25 02:31 Order name: Urine Dipstick--Ancillary (enter results); Complete Time: 03:52 ar5 04/25 02:22 Order name: Urine Dipstick-Ancillary (obtain specimen); Complete Time: 02:27 snw Administered Medications: 02:37 Drug: Orient 10 mg-325 mg 1 tabs Route: PO; jd3 03:50 Follow up: Response: No adverse reaction; Pain is decreased jd3 04:01 Drug: KeFLEX 1000 mg Route: PO; jd3 04:02 Follow up: Response: Medication administered at discharge. jd3 Disposition: 04/25/18 03:50 Discharged to Home. Impression: Acute tubulo-interstitial nephritis. - Condition is Stable. - Discharge Instructions: Pyelonephritis, Adult. - Prescriptions for Keflex 500 mg Oral Capsule - take 2 capsule by ORAL route every 12 hours for 10 days; 40 capsule. Tylenol- Codeine #4 300-60 mg Oral Tablet - take 1 tablet by ORAL route every 6 hours As needed; 12 tablet. - Medication Reconciliation Form, Thank You Letter, Antibiotic Education, Prescription Opioid Use form. - Follow up: Private Physician; When: 2 - 3 days; Reason: Re-evaluation by your physician. Signatures: Dispatcher [employer] Dalila Browne FNP-C FNP-Csnw Bismark Hussein MD MD gs Davies, Jonathon, RN RN jd3 Corrections: (The following items were deleted from the chart) 04:02 03:50 04/25/2018 03:50 Discharged to Home. Impression: Acute tubulo-interstitial jd3 nephritis. Condition is Stable. Forms are Medication Reconciliation Form, Thank You Letter, Antibiotic Education, Prescription Opioid Use. Follow up: Private Physician; When: 2 - 3 days; Reason: Re-evaluation by your physician. gs
[2018-04-25] MEDS ORDERED: CEPHALEXIN 250 MG CAP ONE (04:04)
[2018-04-25 04:10] VITALS: TEMP 98.6
[2018-04-25 04:12] VITALS: BP 160/70; O2SAT 95
--- NOTE | 2018-04-25 08:16 | RAD REPORT ---
EXAM DESCRIPTION: CT - Stone Protocol - 04/25/2018 5:41 am CLINICAL HISTORY: Abdominal pain. Lower abdominal pain. COMPARISON: 2016 TECHNIQUE: Computed axial tomography of the abdomen pelvis was obtained without oral or IV contrast. Lack of IV and oral contrast limits evaluation of solid organs, bowel, and vessels. Coronal reformat darin images were obtained and reviewed. Preliminary report generated by virtual radiologic a review p rior to dictation All CT scans are performed using dose optimization technique as appropriate and may include automated exposure control or mA/KV adjustment according to patient size. FINDINGS: Small bilateral renal calculi are seen without hydronephrosis. A ureteral calculus is not seen. A bladder calculus is not noted. The liver, spleen, pancreas and adrenals appear grossly normal There is no evidence of diverticulitis. The appendix appears normal Small umbilical hernia IMPRESSION: Small bilateral nonobstructing renal calculi
== END 2018-04-25 04:02 | disposition home or self-care (01) ==
LOC: ER 02:10
DX: N10 Acute pyelonephritis (principal); E11.9 Type 2 diabetes mellitus without complications; F32.9 Major depressive disorder, single episode, unspecified; Z79.01 Long term (current) use of anticoagulants; Z79.82 Long term (current) use of aspirin
CPT/HCPCS: 74176; 76377; 81003; 81015; 87077; 87086; 87088; 87186; 99284

== ENCOUNTER 2020-05-11 11:25 | Emergency (ER) | payer OTHER ==
--- NOTE | 2020-05-11 14:16 | RAD REPORT ---
EXAM DESCRIPTION: Nancy Single View05/11/2020 1:34 pm CLINICAL HISTORY: Cough COMPARISON: 2018 FINDINGS: Right lateral base is mildly hazy. Remainder of the lungs appear clear of acute infiltrate. The heart is normal size IMPRESSION: Right lateral base is mildly hazy which may indicate a mild infiltrate
[2020-05-11 15:24] LABS: Absolute Lymphocytes (CBC) 1.4 K/uL (0.7-4.9); Basophils % 0.3 % (0-1.3); Hematocrit 44.5 % (36.0-45.0); Lymphocytes % 23.6 % (15.3-44.8); MPV 8.9 fL (7.6-11.3); RBC Red Blood Cell Count 5.38 M/uL (3.86-4.86)
[2020-05-11 15:40] LABS: ALT/SGPT 48 U/L (12-78); AST/SGOT 42 U/L (15-37); Albumin 3.4 g/dL (3.4-5.0); Alkaline Phosphatase 117 U/L (45-117); BUN Blood Urea Nitrogen 14 mg/dL (7-18); Bicarbonate 24 mmol/L (21-32); Bilirubin Direct 0.1 mg/dL (0-0.2); Bilirubin Total 0.6 mg/dL (0.2-1.0); Ferritin 390.7 ng/mL (8-388); Glucose Level 364 mg/dL (74-106); Lipase 142 U/L (73-393); Potassium 3.7 mmol/L (3.5-5.1); Protein, Total 8.6 g/dL (6.4-8.2); Sodium Level 133 mmol/L (136-145); Troponin (Emerg Dept Use Only) < 0.02 ng/mL (0.0-0.045)
[2020-05-11 15:44] LABS: Protime INR 0.99
--- NOTE | 2020-05-11 16:11 | ER ---
Nurse's Notes [facility] Name: Prabha Barnes Age: 64 yrs Sex: Female : 1955 Arrival Date: 05/11/2020 Time: 11:27 Bed 2 Private MD: Diagnosis: Pneumonia, unspecified organism;Coronavirus infection, unspecified Presentation: 05/11 11:59 Chief complaint: Patient states: N/V, shortness of breath, chest tightness, and malaise em that has been getting worse the past 3 days, denies fever, has not been tested for covid. Coronavirus screen: Client denies travel out of the [place] in the last 14 days. Ebola Screen: Patient negative for fever greater than or equal to 101.5 degrees Fahrenheit, and additional compatible Ebola Virus Disease symptoms Patient denies exposure to infectious person. Patient denies travel to an Ebola-affected area in the 21 days before illness onset. No symptoms or risks identified at this time. Initial Sepsis Screen: Does the patient meet any 2 criteria? HR > 90 bpm. No. Patient's initial sepsis screen is negative. Does the patient have a suspected source of infection? No. Patient's initial sepsis screen is negative. Risk Assessment: Do you want to hurt yourself or someone else? Patient reports no desire to harm self or others. Onset of symptoms was May 07, 2020. 11:59 Method Of Arrival: Wheelchair em 11:59 Acuity: CAITLYN 3 em Triage Assessment: 12:05 General: Appears in no apparent distress. comfortable, obese, Behavior is cooperative, bp appropriate for age, anxious. Pain: Denies pain. EENT: No deficits noted. Neuro: Level of Consciousness is awake, alert, obeys commands, Oriented to person, place, time, situation, Appropriate for age. Cardiovascular: Rhythm is sinus tachycardia. Respiratory: Reports shortness of breath cough that is Onset: The symptoms/episode began/occurred 3 DAYS AGO, the patient has mild shortness of breath. GI: Reports nausea. : No signs and/or symptoms were reported regarding the genitourinary system. Derm: No deficits noted. Musculoskeletal: No deficits noted. Historical: - Allergies: 12:02 NKDA; em - PMHx: 12:02 Diabetes - NIDDM; Depression; constipation; TIA; em - PSHx: 12:02 Heart Cath; em - Immunization history:: Adult Immunizations up to date. - Social history:: Smoking status: Patient denies any tobacco usage or history of. Screenin:05 Abuse screen: Denies threats or abuse. Denies injuries from another. Nutritional bp screening: No deficits noted. Tuberculosis screening: No symptoms or risk factors identified. Fall Risk None identified. Assessment: 12:05 General: SEE TRIAGE NOTE. Cardiovascular: Rhythm is sinus tachycardia. Respiratory: bp Airway is patent Respiratory effort is even, unlabored, Breath sounds with crackles bilaterally. 14:00 Reassessment: Patient appears in no apparent distress at this time. No changes from bp previously documented assessment. Patient and/or family updated on plan of care and expected duration. Pain level reassessed. Patient is alert, oriented x 3, equal unlabored respirations, skin warm/dry/pink. UNABLE TO OBTAIN PIV, MD AWARE. FURTHER ATTEMPTS PENDING. 15:00 Reassessment: Patient appears in no apparent distress at this time. No changes from bp previously documented assessment. Patient and/or family updated on plan of care and expected duration. Pain level reassessed. Patient is alert, oriented x 3, equal unlabored respirations, skin warm/dry/pink. PIV ESTABLISHED. ALL CURRENT ORDERS IN PROCESS. 16:19 Reassessment: Patient appears in no apparent distress at this time. No changes from tw2 previously documented assessment. Patient and/or family updated on plan of care and expected duration. Pain level reassessed. Patient is alert, oriented x 3, equal unlabored respirations, skin warm/dry/pink. 16:53 Reassessment: Patient appears in no apparent distress at this time. No changes from tw2 previously documented assessment. Patient and/or family updated on plan of care and expected duration. Pain level reassessed. Patient is alert, oriented x 3, equal unlabored respirations, skin warm/dry/pink. 17:19 Reassessment: Patient appears in no apparent distress at this time. No changes from tw2 previously documented assessment. Patient and/or family updated on plan of care and expected duration. Pain level reassessed. Patient is alert, oriented x 3, equal unlabored respirations, skin warm/dry/pink. Vital Signs: 11:59 BP 167 / 85; Pulse 106; Resp 20; Temp 98.8(O); Pulse Ox 97% on R/A; Weight 107.05 kg; em Height 5 ft. 2 in. (157.48 cm); Pain 5/10; 14:45 BP 144 / 74; Pulse 99; Resp 17; Pulse Ox 96% on R/A; tw2 15:30 BP 152 / 88; Pulse 98; Resp 19; Pulse Ox 96% on R/A; tw2 16:20 BP 146 / 98; Pulse 102; Resp 18; Pulse Ox 95% on R/A; tw2 17:18 BP 139 / 69; Pulse 96; Resp 17; Pulse Ox 99% on R/A; tw2 11:59 Body Mass Index 43.16 (107.05 kg, 157.48 cm) em ED Course: 11:27 Patient arrived in ED. ag5 12:02 Triage completed. em 12:02 Arm band placed on. em 12:05 Patient has correct armband on for positive identification. Bed in low position. Call bp light in reach. Side rails up X2. 13:11 Mariposa Gracia FNP-C is PHCP. kb 13:11 Jose Yanez MD is Attending Physician. kb 13:34 Chest Single View XRAY In Process Unspecified. EDMS 14:08 Elizabeth Masterson, ANKITA is Primary Nurse. tw2 14:26 EKG done, by ED staff, reviewed by Jose Yanez MD. em1 14:32 Missed attempt(s): 22 gauge in right antecubital area. Bleeding controlled, band aid tw2 applied, catheter tip intact. 14:50 Missed attempt(s): 22 gauge in right antecubital area. Bleeding controlled, band aid em applied, catheter tip intact. 15:00 Initial lab(s) drawn, by me, sent to lab. Inserted saline lock: 22 gauge in right em antecubital area, using aseptic technique. Blood collected. 15:00 First set of blood cultures drawn by ED staff. em1 15:21 Second set of blood cultures drawn by me. em1 16:19 Awaiting: completion of IV abx prior to discharge. tw2 17:19 No provider procedures requiring assistance completed. IV discontinued, intact, tw2 bleeding controlled, No redness/swelling at site. Pressure dressing applied. Administered Medications: 16:12 Drug: NS 0.9% 500 ml Route: IV; Rate: bolus; Site: right antecubital; tw2 16:12 Drug: Zofran (Ondansetron) 4 mg Route: IVP; Site: right antecubital; tw2 16:14 Drug: Decadron - Dexamethasone 10 mg Route: IVP; Site: right antecubital; tw2 16:16 Drug: Rocephin 1 grams Route: IV; Rate: calculated rate; Site: right antecubital; tw2 16:21 Follow up: Response: No adverse reaction; IV Status: Completed infusion; IV Intake: [id number] 16:18 Drug: Zithromax 500 mg Route: PO; tw2 Intake: 16:21 IV: 10ml; Total: 10ml. tw2 Outcome: 16:10 Discharge ordered by MD. muñoz 17:19 Discharged to home ambulatory. tw2 17:19 Condition: stable 17:19 Discharge instructions given to patient, Instructed on discharge instructions, follow up and referral plans. medication usage, Demonstrated understanding of instructions, follow-up care, medications, Prescriptions given X 4. 17:21 Patient left the ED. tw2 Signatures: Dispatcher [employer] Mariposa Wilson, GRINDER AND HONER OPERATOR AUTOMATIC-C GRINDER AND HONER OPERATOR AUTOMATIC-CkJose Angeles, RN RN Sunny Pedro em1 Elizabeth Masterson RN RN tw2 Baron Adler RN RN Jemma Adams [facility]
--- NOTE | 2020-05-11 16:11 | EDPHYS ---
Physician Documentation [facility] Name: Prabha Barnes Age: 64 yrs Sex: Female : 1955 Arrival Date: 05/11/2020 Time: 11:27 Bed 2 Private MD: ED Physician Jose Yanez HPI: 05/11 16:07 This 64 yrs old Female presents to ER via Wheelchair with complaints of kb Cough, Shortness Of Breath, Body Aches. 16:07 The patient or guardian reports cough, that is intermittent, described as moderate, kb with no sputum, difficulty breathing, flu symptoms, low-grade fever, myalgias, no appetite. Onset: The symptoms/episode began/occurred 5 day(s) ago. Severity of symptoms: At their worst the symptoms were moderate, in the emergency department the symptoms are unchanged. Modifying factors: The symptoms are alleviated by nothing, the symptoms are aggravated by nothing. Associated signs and symptoms: Pertinent positives: nausea, Pertinent negatives: chest pain, diarrhea, ear ache, fever, rhinorrhea, sore throat, vomiting. The patient has not experienced similar symptoms in the past. The patient has not recently seen a physician. Pt reports cough, shortness of breath, nausea, malaise, fatigue, chills, decreased appetite, body aches for 5 days. Historical: - Allergies: 12:02 NKDA; em - PMHx: 12:02 Diabetes - NIDDM; Depression; constipation; TIA; em - PSHx: 12:02 Heart Cath; em - Immunization history:: Adult Immunizations up to date. - Social history:: Smoking status: Patient denies any tobacco usage or history of. ROS: 16:05 Cardiovascular: Negative for chest pain, palpitations, and edema, Abdomen/GI: Negative kb for abdominal pain, vomiting, diarrhea, and constipation. +nausea Back: Negative for injury and pain, MS/Extremity: Negative for injury and deformity, Skin: Negative for injury, rash, and discoloration, Neuro: Negative for headache, weakness, numbness, tingling, and seizure. 16:05 Constitutional: Positive for body aches, chills, fatigue, malaise, poor PO intake. 16:05 Respiratory: Positive for cough, shortness of breath. Exam: 16:06 Constitutional: This is a well developed, well nourished patient who is awake, alert, kb and in no acute distress. Head/Face: Normocephalic, atraumatic. Chest/axilla: Normal chest wall appearance and motion. Nontender with no deformity. No lesions are appreciated. Cardiovascular: Regular rate and rhythm with a normal S1 and S2. No gallops, murmurs, or rubs. Normal PMI, no JVD. No pulse deficits. Respiratory: Lungs have equal breath sounds bilaterally, clear to auscultation and percussion. No rales, rhonchi or wheezes noted. No increased work of breathing, no retractions or nasal flaring. Abdomen/GI: Soft, non-tender, with normal bowel sounds. No distension or tympany. No guarding or rebound. No evidence of tenderness throughout. Skin: Warm, dry with normal turgor. Normal color with no rashes, no lesions, and no evidence of cellulitis. MS/ Extremity: Pulses equal, no cyanosis. Neurovascular intact. Full, normal range of motion. Neuro: Awake and alert, GCS 15, oriented to person, place, time, and situation. Cranial nerves II-XII grossly intact. Motor strength 5/5 in all extremities. Sensory grossly intact. Cerebellar exam normal. Normal gait. Vital Signs: 11:59 BP 167 / 85; Pulse 106; Resp 20; Temp 98.8(O); Pulse Ox 97% on R/A; Weight 107.05 kg; em Height 5 ft. 2 in. (157.48 cm); Pain 5/10; 14:45 BP 144 / 74; Pulse 99; Resp 17; Pulse Ox 96% on R/A; tw2 15:30 BP 152 / 88; Pulse 98; Resp 19; Pulse Ox 96% on R/A; tw2 16:20 BP 146 / 98; Pulse 102; Resp 18; Pulse Ox 95% on R/A; tw2 17:18 BP 139 / 69; Pulse 96; Resp 17; Pulse Ox 99% on R/A; tw2 11:59 Body Mass Index 43.16 (107.05 kg, 157.48 cm) em MDM: 13:44 Patient medically screened. [facility] 16:04 Data reviewed: vital signs, nurses notes. Data interpreted: Pulse oximetry: on room air kb is 97 %. Interpretation: normal. Counseling: I had a detailed discussion with the patient and/or guardian regarding: the historical points, exam findings, and any diagnostic results supporting the discharge/admit diagnosis, lab results, radiology results, the need for outpatient follow up, a family practitioner, to return to the emergency department if symptoms worsen or persist or if there are any questions or concerns that arise at home. 05/11 13:11 Order name: Flu; Complete Time: 15:56 kb 05/11 14:03 Order name: Blood Culture Adult (2) kb 05/11 14:03 Order name: BMP; Complete Time: 15:41 kb 05/11 14:03 Order name: C-Reactive Protein; Complete Time: 15:41 kb 05/11 14:03 Order name: CBC with Diff; Complete Time: 15:41 kb 05/11 14:03 Order name: COVID-19; Complete Time: 17:07 kb 05/11 14:03 Order name: Ferritin; Complete Time: 15:41 kb 05/11 14:03 Order name: Lactate; Complete Time: 15:37 kb 05/11 14:03 Order name: LFT's; Complete Time: 15:41 kb 05/11 14:03 Order name: Lipase; Complete Time: 15:41 kb 05/11 14:03 Order name: Procalcitonin; Complete Time: 16:09 kb 05/11 14:03 Order name: PT-INR; Complete Time: 15:53 kb 05/11 14:03 Order name: Ptt, Activated; Complete Time: 15:53 kb 05/11 14:03 Order name: Troponin (emerg Dept Use Only); Complete Time: 15:41 kb 05/11 13:11 Order name: Chest Single View XRAY; Complete Time: 14:22 kb 05/11 14:03 Order name: EKG; Complete Time: 14:06 kb 05/11 14:03 Order name: Cardiac monitoring; Complete Time: 15:06 kb 05/11 14:03 Order name: Droplet/Contact Precautions; Complete Time: 15:06 kb 05/11 14:03 Order name: EKG - Nurse/Tech; Complete Time: 14:26 kb 05/11 14:03 Order name: IV Start; Complete Time: 15:06 kb 05/11 14:03 Order name: Labs collected and sent; Complete Time: 15:06 kb 05/11 14:03 Order name: O2 Per Protocol; Complete Time: 15:06 kb 05/11 14:03 Order name: O2 Sat Monitoring; Complete Time: 15:06 kb Administered Medications: 16:12 Drug: NS 0.9% 500 ml Route: IV; Rate: bolus; Site: right antecubital; tw2 16:12 Drug: Zofran (Ondansetron) 4 mg Route: IVP; Site: right antecubital; tw2 16:14 Drug: Decadron - Dexamethasone 10 mg Route: IVP; Site: right antecubital; tw2 16:16 Drug: Rocephin 1 grams Route: IV; Rate: calculated rate; Site: right antecubital; tw2 16:21 Follow up: Response: No adverse reaction; IV Status: Completed infusion; IV Intake: [id number] 16:18 Drug: Zithromax 500 mg Route: PO; tw2 Disposition: 05/11/20 16:10 Discharged to Home. Impression: Pneumonia, unspecified organism, Coronavirus infection, unspecified. - Condition is Stable. - Discharge Instructions: Community-Acquired Pneumonia, Adult, [id number], COVID-19. - Prescriptions for Prednisone 20 mg Oral Tablet - take 1 tablet by ORAL route once daily for 5 days; 5 tablet. Zofran 4 mg Oral Tablet - take 1 tablet by ORAL route every 6 hours As needed; 20 tablet. Albuterol Sulfate 90 mcg/actuation - inhale 1-2 puff by INHALATION route every 4-6 hours; 1 Inhaler. Zithromax 500 mg Oral Tablet - take 1 tablet by ORAL route once daily for 5 days; 5 tablet. - Medication Reconciliation Form, Thank You Letter, Antibiotic Education, Prescription Opioid Use, Work release form form. - Follow up: Emergency Department; When: As needed; Reason: Worsening of condition. Follow up: Private Physician; When: 2 - 3 days; Reason: Recheck today's complaints, Continuance of care, Re-evaluation by your physician. Signatures: Dispatcher [employer] Mariposa Wilson, MEDICAL EDUCATORCarlozC MEDICAL EDUCATOR-Jose Cuevas MD MD cha Munoz, Edgar, RN RN Elizabeth Castañeda RN RN tw2 Corrections: (The following items were deleted from the chart) 17:21 16:10 05/11/2020 16:10 Discharged to Home. Impression: Pneumonia, unspecified organism; tw2 Coronavirus infection, unspecified. Condition is Stable. Forms are Medication Reconciliation Form, Thank You Letter, Antibiotic Education, Prescription Opioid Use. Follow up: Emergency Department; When: As needed; Reason: Worsening of condition. Follow up: Private Physician; When: 2 - 3 days; Reason: Recheck today's complaints, Continuance of care, Re-evaluation by your physician. kb
[2020-05-11] MEDS ORDERED: NA CHLORIDE 0.9% 500 ML ONE (16:16)
[2020-05-11] MEDS ORDERED: CEFTRIAXONE/SWI 1gm 1 GM/10 ML SYR ONE (16:16)
[2020-05-11] MEDS ORDERED: AZITHROMYCIN 250 MG TAB ONE (16:22)
[2020-05-11] MEDS ORDERED: dexAMETHasone 10 MG/ML VIAL ONE (16:23)
[2020-05-11] MEDS ORDERED: ONDANSETRON 4 MG/2 ML VIAL ONE (16:23)
--- NOTE | 2020-05-11 19:13 | EKG ---
Test Date: 2020-05-11 Test Time: 14:14:08 Information Resources Director: JAELYN MEASUREMENT RESULTS: Intervals: Rate: 103 CO: 144 QRSD: 76 QT: 348 QTc: 455 [place]: P: 68 CO: 144 QRS: 50 T: 69 INTERPRETIVE STATEMENTS: Sinus tachycardia Otherwise normal ECG Compared to ECG 01/15/2018 17:28:50 Sinus rhythm no longer present Electronically Signed On 05-11-20 19:12:34 ENGINEER/CONDUCTOR by Mario Sal
[2020-05-13 03:49] VITALS: TEMP 98.8
[2020-05-13 03:54] VITALS: BP 139/69; O2SAT 99
== END 2020-05-11 17:21 | disposition home or self-care (01) ==
LOC: ER 11:25
DX: U07.1 COVID-19 (principal); J18.9 Pneumonia, unspecified organism; E11.9 Type 2 diabetes mellitus without complications
CPT/HCPCS: 96361; 93005; 87040 ×2; 85025; 80048; 36415; 85610; 80076; 83605; 85730; 84484; 82728; 83690; 84145; 86140; 87804 ×2; 71045; 96375; 96374; 99284; U0002; J1100; J0696; J7040; J2405

== ENCOUNTER 2020-05-13 12:09 | Emergency (ER) | payer OTHER ==
[2020-05-13] MEDS ORDERED: ACETAMINOPHEN 500 MG TAB ONE (13:50)
[2020-05-13] MEDS ORDERED: ONDANSETRON 4 MG/2 ML VIAL ONE (15:12)
[2020-05-13] MEDS ORDERED: MORPHINE 4 MG/ML SYR ONE (15:12)
[2020-05-13] MEDS ORDERED: NA CHLORIDE 0.9% 1,000 ML ONE (15:12)
[2020-05-13 15:20] LABS: Absolute Lymphocytes (CBC) 0.9 K/uL (0.7-4.9); Basophils % 0.3 % (0-1.3); Hematocrit 40.8 % (36.0-45.0); Lymphocytes % 14.2 % (15.3-44.8); MPV 9.1 fL (7.6-11.3); RBC Red Blood Cell Count 4.97 M/uL (3.86-4.86)
[2020-05-13 15:24] LABS: Protime INR 1.05
[2020-05-13 15:26] LABS: ALT/SGPT 38 U/L (12-78); AST/SGOT 32 U/L (15-37); Albumin 3.1 g/dL (3.4-5.0); Alkaline Phosphatase 98 U/L (45-117); BUN Blood Urea Nitrogen 18 mg/dL (7-18); Bicarbonate 23 mmol/L (21-32); Bilirubin Direct 0.1 mg/dL (0-0.2); Bilirubin Total 0.5 mg/dL (0.2-1.0); Ferritin 341.5 ng/mL (8-388); Glucose Level 322 mg/dL (74-106); Lipase 140 U/L (73-393); Potassium 4.1 mmol/L (3.5-5.1); Protein, Total 7.8 g/dL (6.4-8.2); Sodium Level 135 mmol/L (136-145); Troponin (Emerg Dept Use Only) < 0.02 ng/mL (0.0-0.045)
--- NOTE | 2020-05-13 15:41 | RAD REPORT ---
EXAM DESCRIPTION: [place] Single View05/13/2020 3:02 pm CLINICAL HISTORY: cough COMPARISON: 05/11/20 FINDINGS: Right base is hazy. Upper lobes appear clear. The heart is normal size IMPRESSION: The right base is hazy probably secondary to overlying soft tissue. Infiltrate can also have this appearance. If clinically indicated further evaluation with PA and lateral chest series cou ld be obtained
--- NOTE | 2020-05-13 16:20 | RAD REPORT ---
EXAM DESCRIPTION: CT - Abdomen Pelvis W Contrast - 05/13/2020 4:00 pm CLINICAL HISTORY: Abdominal pain/flank pain/hematuria COMPARISON: 2017 TECHNIQUE: Computed axial tomography of the abdomen pelvis was obtained. 100 cc Isovue-300 was admin istered intravenously. Oral contrast was not requested which limits evaluation of bowel. All CT scans are performed using dose optimization technique as appropriate and may include automated exposure control or mA/KV adjustment according to patient size. FINDINGS: Mild to moderate right basilar and mild left basilar ground-glass opacities. Fatty liver. Spleen, pancreas, adrenal and left kidney appear unremarkable. 2 millimeter nonobstructing right april l calculus There is no evidence of diverticulitis. Normal appendix. Spondylosis involves lumbar spine. Small umb ilical hernia IMPRESSION: Mild to moderate right and mild left basilar pulmonary ground-glass opacities may indica te a viral pneumonia or pneumonitis A 2 millimeter nonobstructing right renal calculus.
--- NOTE | 2020-05-13 17:02 | EDPHYS ---
Physician Documentation [facility] Name: Prabha Barnes Age: 64 yrs Sex: Female : 1955 Arrival Date: 05/13/2020 Time: 12:14 Bed 20 Private MD: ED Physician Kurtis Wood HPI: 05/13 16:04 This 64 yrs old Female presents to ER via Wheelchair with complaints of kb Shortness Of Breath, Blood in Urine. 16:04 The patient has not experienced similar symptoms in the past. The patient has not kb recently seen a physician. 17:02 The patient has shortness of breath at rest. Onset: The symptoms/episode began/occurred kb 3 day(s) ago. Duration: The symptoms are continuous. The patient's shortness of breath is aggravated by nothing, is alleviated by nothing. Associated signs and symptoms: Pertinent positives: non-productive cough, fever. Severity of symptoms: At their worst the symptoms were moderate in the emergency department the symptoms are unchanged. Pt reports cough, congestion, shortness of breath, fever, malaise, fatigue, low back pain and hematuria. . Historical: - Allergies: 13:26 NKDA; aa5 - PMHx: 13:26 constipation; Depression; Diabetes - NIDDM; TIA; aa5 - PSHx: 13:26 Heart Cath; aa5 - Immunization history:: Flu vaccine is up to date. - Social history:: Smoking status: Patient denies any tobacco usage or history of. ROS: 16:02 Cardiovascular: Negative for chest pain, palpitations, and edema, Abdomen/GI: Negative kb for abdominal pain, vomiting, diarrhea, and constipation. + nausea MS/Extremity: Negative for injury and deformity, Skin: Negative for injury, rash, and discoloration, Neuro: Negative for headache, weakness, numbness, tingling, and seizure. 16:02 Constitutional: Positive for body aches, fatigue, malaise. 16:02 Respiratory: Positive for cough. 16:02 Back: Positive for of the low back area. 16:02 : Positive for flank pain, hematuria. Exam: 15:25 Head/Face: Normocephalic, atraumatic. Chest/axilla: Normal chest wall appearance and kb motion. Nontender with no deformity. No lesions are appreciated. Cardiovascular: Regular rate and rhythm with a normal S1 and S2. No gallops, murmurs, or rubs. Normal PMI, no JVD. No pulse deficits. Respiratory: Lungs have equal breath sounds bilaterally, clear to auscultation and percussion. No rales, rhonchi or wheezes noted. No increased work of breathing, no retractions or nasal flaring. Abdomen/GI: Soft, non-tender, with normal bowel sounds. No distension or tympany. No guarding or rebound. No evidence of tenderness throughout. Back: No spinal tenderness. No costovertebral tenderness. Full range of motion. Skin: Warm, dry with normal turgor. Normal color with no rashes, no lesions, and no evidence of cellulitis. MS/ Extremity: Pulses equal, no cyanosis. Neurovascular intact. Full, normal range of motion. Neuro: Awake and alert, GCS 15, oriented to person, place, time, and situation. Cranial nerves II-XII grossly intact. Motor strength 5/5 in all extremities. Sensory grossly intact. Cerebellar exam normal. Normal gait. 15:25 Constitutional: The patient appears alert, awake, uncomfortable. 15:25 ECG was reviewed by the Attending Physician. Vital Signs: 13:24 BP 152 / 104; Pulse 106; Resp 20 S; Temp 100.9(O); Pulse Ox 97% on R/A; Weight 107.05 aa5 kg (R); Height 5 ft. 2 in. (157.48 cm) (R); Pain 10/10; 15:05 BP 122 / 67; Pulse 94; Resp 19; Pulse Ox 95% on R/A; sv 16:29 BP 136 / 78; Pulse 94; Resp 16; Pulse Ox 96% on R/A; sv 13:24 Body Mass Index 43.17 (107.05 kg, 157.48 cm) aa5 MDM: 13:41 Patient medically screened. kb 16:02 Data reviewed: vital signs, nurses notes. Data interpreted: Pulse oximetry: on room air kb is 95 %. Interpretation: normal. 16:53 Counseling: I had a detailed discussion with the patient and/or guardian regarding: the kb historical points, exam findings, and any diagnostic results supporting the discharge/admit diagnosis, lab results, radiology results, the need for outpatient follow up, a family practitioner, to return to the emergency department if symptoms worsen or persist or if there are any questions or concerns that arise at home. 05/13 13:42 Order name: Blood Culture Adult (2) kb 05/13 13:42 Order name: BMP; Complete Time: 15:32 kb 05/13 13:42 Order name: C-Reactive Protein; Complete Time: 15:32 kb 05/13 13:42 Order name: CBC with Diff; Complete Time: 15:26 kb 05/13 13:42 Order name: Ferritin; Complete Time: 15:32 kb 05/13 13:42 Order name: Lactate; Complete Time: 15:32 kb 05/13 13:42 Order name: LFT's; Complete Time: 15:32 kb 05/13 13:42 Order name: Lipase; Complete Time: 15:32 kb 05/13 13:42 Order name: Procalcitonin; Complete Time: 15:58 kb 05/13 13:42 Order name: PT-INR; Complete Time: 15:32 kb 05/13 13:42 Order name: Ptt, Activated; Complete Time: 15:32 kb 05/13 13:42 Order name: Troponin (emerg Dept Use Only); Complete Time: 15:32 kb 05/13 13:42 Order name: CXR XRAY; Complete Time: 15:43 kb 05/13 16:52 Order name: Urine Dipstick--Ancillary (enter results) eb 05/13 13:42 Order name: EKG; Complete Time: 13:43 kb 05/13 13:42 Order name: Cardiac monitoring; Complete Time: 15:10 kb 05/13 13:42 Order name: Droplet/Contact Precautions; Complete Time: 15:10 kb 05/13 13:42 Order name: EKG - Nurse/Tech; Complete Time: 15:10 kb 05/13 13:42 Order name: IV Start; Complete Time: 15:10 kb 05/13 13:42 Order name: Labs collected and sent; Complete Time: 15:10 kb 05/13 13:42 Order name: O2 Per Protocol; Complete Time: 15:10 kb 05/13 13:42 Order name: O2 Sat Monitoring; Complete Time: 15:10 kb 05/13 13:42 Order name: Urine Dipstick-Ancillary (obtain specimen); Complete Time: 16:51 kb 05/13 15:33 Order name: CT Abd/Pelvis - IV Contrast Only; Complete Time: 16:21 kb EC:25 Rate is 99 beats/min. Rhythm is regular. QRS [place] is Normal. [place] interval is normal at kb 138 msec. QRS interval is normal at 74 msec. QT interval is normal at 340 msec. Administered Medications: 13:57 Drug: Tylenol 1000 mg Route: PO; aa5 15:11 Follow up: Response: No adverse reaction sv 15:05 Drug: NS 0.9% 1000 ml Route: IV; Rate: 1000 ml; Site: right wrist; sv 15:05 Drug: Zofran (Ondansetron) 4 mg Route: IVP; Site: right wrist; sv 16:00 Follow up: Response: No adverse reaction; Nausea is decreased sv 15:07 Drug: morphine 2 mg {Note: rass2- Pt stated that she wanted to start with half..} sv Route: IVP; Site: right wrist; 16:00 Follow up: Response: No adverse reaction; RASS: Alert and Calm (0) sv Disposition: 18:28 Co-signature as Attending Physician, Kurtis Wood MD I agree with the assessment and kdr plan of care. Disposition: 05/13/20 17:02 Discharged to Home. Impression: Coronavirus infection, unspecified, Viral pneumonia, unspecified. - Condition is Stable. - Discharge Instructions: Community-Acquired Pneumonia, Adult, [id number], COVID-19. - Medication Reconciliation Form, Thank You Letter, Antibiotic Education, Prescription Opioid Use form. - Follow up: Emergency Department; When: As needed; Reason: Worsening of condition. Follow up: Private Physician; When: 2 - 3 days; Reason: Recheck today's complaints, Continuance of care, Re-evaluation by your physician. Signatures: Dispatcher [employer] [facility] Mariposa Gracia, Felipa Razo RN RN Kurtis Thomason MD MD kdr Calderon, Audri RN RN aa5 Corrections: (The following items were deleted from the chart) 17:45 17:02 05/13/2020 17:02 Discharged to Home. Impression: Coronavirus infection, sv unspecified; Viral pneumonia, unspecified. Condition is Stable. Forms are Medication Reconciliation Form, Thank You Letter, Antibiotic Education, Prescription Opioid Use. Follow up: Emergency Department; When: As needed; Reason: Worsening of condition. Follow up: Private Physician; When: 2 - 3 days; Reason: Recheck today's complaints, Continuance of care, Re-evaluation by your physician. kb
--- NOTE | 2020-05-13 17:02 | ER ---
Nurse's Notes [facility] Name: Prabha Barnes Age: 64 yrs Sex: Female : 1955 Arrival Date: 05/13/2020 Time: 12:14 Bed 20 Private MD: Diagnosis: Coronavirus infection, unspecified;Viral pneumonia, unspecified Presentation: 05/13 13:22 Chief complaint: Patient states: low back pain and blood in the urine for approximately aa5 3-4 days ago. Pt reports nausea, SOB, and cough. Positive COVID-19 result confirmed today. 13:22 Coronavirus screen: Client presents with at least one sign or symptom that may indicate aa5 coronavirus-19. Standard/surgical mask placed on the client. Provider contacted for isolation considerations. Client reports previous positive COVID test result. Ebola Screen: Patient negative for fever greater than or equal to 101.5 degrees Fahrenheit, and additional compatible Ebola Virus Disease symptoms. Initial Sepsis Screen: Does the patient meet any 2 criteria? HR > 90 bpm. Does the patient have a suspected source of infection? Yes:. Risk Assessment: Do you want to hurt yourself or someone else? Patient reports no desire to harm self or others. Onset of symptoms was April 2020. 13:22 Acuity: CAITLYN 3 aa5 13:22 Method Of Arrival: Wheelchair aa5 Historical: - Allergies: 13:26 NKDA; aa5 - PMHx: 13:26 constipation; Depression; Diabetes - NIDDM; TIA; aa5 - PSHx: 13:26 Heart Cath; aa5 - Immunization history:: Flu vaccine is up to date. - Social history:: Smoking status: Patient denies any tobacco usage or history of. Screenin:35 Abuse screen: Denies threats or abuse. Denies injuries from another. Nutritional sv screening: No deficits noted. Tuberculosis screening: No symptoms or risk factors identified. Fall Risk None identified. Assessment: 14:35 General: Appears in no apparent distress. uncomfortable, obese, well groomed, well sv developed, Behavior is calm, cooperative, appropriate for age. Pain: Complains of pain in low back area Pain currently is 10 out of 10 on a pain scale. Quality of pain is described as throbbing, Is continuous. Neuro: Level of Consciousness is awake, alert, obeys commands, Oriented to person, place, time, situation, Moves all extremities. Full function Gait is steady. Cardiovascular: Patient's skin is warm and dry. Rhythm is sinus rhythm. Respiratory: Reports shortness of breath Airway is patent Respiratory effort is even, unlabored, Respiratory pattern is regular, symmetrical. GI: Reports nausea. : Reports hematuria. Derm: Skin is intact, Skin is pink, warm \T\ dry. Musculoskeletal: Range of motion: intact in all extremities. 15:05 Reassessment: Patient appears in no apparent distress at this time. No changes from sv previously documented assessment. Patient and/or family updated on plan of care and expected duration. Pain level reassessed. Patient is alert, oriented x 3, equal unlabored respirations, skin warm/dry/pink. 17:03 Reassessment: Patient appears in no apparent distress at this time. No changes from sv previously documented assessment. Patient and/or family updated on plan of care and expected duration. Pain level reassessed. Patient is alert, oriented x 3, equal unlabored respirations, skin warm/dry/pink. Vital Signs: 13:24 BP 152 / 104; Pulse 106; Resp 20 S; Temp 100.9(O); Pulse Ox 97% on R/A; Weight 107.05 aa5 kg (R); Height 5 ft. 2 in. (157.48 cm) (R); Pain 10/10; 15:05 BP 122 / 67; Pulse 94; Resp 19; Pulse Ox 95% on R/A; sv 16:29 BP 136 / 78; Pulse 94; Resp 16; Pulse Ox 96% on R/A; sv 13:24 Body Mass Index 43.17 (107.05 kg, 157.48 cm) aa5 ED Course: 12:14 Patient arrived in ED. rg4 13:20 Mariposa Gracia FNP-C is PHCP. kb 13:20 Kurtis Wood MD is Attending Physician. kb 13:22 Arm band placed on. aa5 13:26 Triage completed. aa5 14:03 Isaias Michaels, RN is Primary Nurse. ll1 14:15 Primary Nurse role handed off by Isaias Michaels, RN sv 14:15 Felipa Thacker, ANKITA is Primary Nurse. sv 14:35 Patient has correct armband on for positive identification. Placed in gown. Bed in low sv position. Call light in reach. game tester on. Pulse ox on. NIBP on. Door closed. Head of bed elevated. 14:40 First set of blood cultures drawn by me. sv 14:48 Second set of blood cultures drawn by me. Inserted saline lock: 20 gauge in right sv wrist, using aseptic technique. Blood collected. Flushed right with 5 ml normal saline. 15:03 CXR XRAY In Process Unspecified. EDMS 16:01 CT Abd/Pelvis - IV Contrast Only In Process Unspecified. EDMS 17:20 No provider procedures requiring assistance completed. IV discontinued, intact, sv bleeding controlled, No redness/swelling at site. Pressure dressing applied. Administered Medications: 13:57 Drug: Tylenol 1000 mg Route: PO; aa5 15:11 Follow up: Response: No adverse reaction sv 15:05 Drug: NS 0.9% 1000 ml Route: IV; Rate: 1000 ml; Site: right wrist; sv 15:05 Drug: Zofran (Ondansetron) 4 mg Route: IVP; Site: right wrist; sv 16:00 Follow up: Response: No adverse reaction; Nausea is decreased sv 15:07 Drug: morphine 2 mg {Note: rass2- Pt stated that she wanted to start with half..} sv Route: IVP; Site: right wrist; 16:00 Follow up: Response: No adverse reaction; RASS: Alert and Calm (0) sv Outcome: 17:02 Discharge ordered by . kb 17:20 Discharged to home via wheelchair, with family. sv 17:20 Condition: stable 17:20 Condition: improved 17:20 Discharge instructions given to patient, family, Instructed on discharge instructions, follow up and referral plans. Demonstrated understanding of instructions, follow-up care. 17:20 Patient left the ED. sv Signatures: Dispatcher [employer] EDMS Mariposa Gracia, REGI GEE-Felipa Echeverria RN RN Wendy Jesus RN RN Hannah Knott Lynsay RN RN ll1 Corrections: (The following items were deleted from the chart) 13:31 13:22 Initial Sepsis Screen: Does the patient meet any 2 criteria? HR > 90 bpm. Does aa5 the patient have a suspected source of infection? Yes: aa5 15:11 15:07 morphine 4 mg IVP in right wrist sv sv 15:45 15:05 Pulse 94bpm; Resp 19bpm; Pulse Ox 95% RA; sv sv 18:10 17:45 Patient left the ED. sv sv
[2020-05-13 18:07] LABS: Urine Blood 1+ (NEG); Urine Glucose 2+ (NEG); Urine Protein 1+ (NEG); Urine Specific Gravity 1.015 (1.005-1.030); Urine pH 6.5 (5.0-7.0)
--- NOTE | 2020-05-14 14:00 | EKG ---
Test Date: 2020-05-13 Test Time: 14:35:45 Psychopaedic Nurse: ENRIQUE MEASUREMENT RESULTS: Intervals: Rate: 99 IN: 138 QRSD: 74 QT: 340 QTc: 436 [place]: P: 54 IN: 138 QRS: 29 T: 48 INTERPRETIVE STATEMENTS: Normal sinus rhythm Possible Left atrial enlargement Borderline ECG Compared to ECG 05/11/2020 14:14:08 Sinus tachycardia no longer present Electronically Signed On 05-14-20 13:58:30 [employer] UP HELPER [employer]QU[employer] by Mario Sal
[2020-05-16 15:51] VITALS: TEMP 100.9
[2020-05-16 15:54] VITALS: BP 136/78; O2SAT 96
== END 2020-05-13 17:45 | disposition home or self-care (01) ==
LOC: ER 12:09
DX: U07.1 COVID-19 (principal); J12.89 Other viral pneumonia
CPT/HCPCS: 93005; 87040 ×2; 85025; 80048; 36415; 85610; 80076; 83605; 85730; 81003; 84484; 82728; 83690; 84145; 86140; 74177; 71045; 96375; 96374; 99284; Q9967; J7030; J2405

== ENCOUNTER 2020-06-11 13:44 | Emergency (ER) | payer OTHER ==
[2020-06-11] MEDS ORDERED: METHYLPREDNISOLONE 40 MG INJ ONE (16:49)
[2020-06-11] MEDS ORDERED: BENZONATATE 100 MG CAP PO ONE (16:49)
--- NOTE | 2020-06-11 17:14 | RAD REPORT ---
EXAM DESCRIPTION: RAD - Chest Single View - 06/11/2020 4:19 pm CLINICAL HISTORY: Cough;SOB Chest pain. COMPARISON: Chest Single View dated 05/13/2020; Chest Single View dated 05/11/2020; Chest Single Vie w dated 01/15/2018; Chest Single View dated 09/07/2016 FINDINGS: Portable technique limits examination quality. Mild bilateral interstitial lung opacities are seen suspicious for viral pneumonitis or bronchitis. T he heart is mildly enlarged. Cervical spine hardware plate noted.
[2020-06-11 17:21] LABS: Absolute Lymphocytes (CBC) 2.8 K/uL (0.7-4.9); Basophils % 0.8 % (0-1.3); Lymphocytes % 31.5 % (15.3-44.8); MPV 8.5 fL (7.6-11.3); RBC Red Blood Cell Count 4.86 M/uL (3.86-4.86)
[2020-06-11 17:31] LABS: ALT/SGPT 35 U/L (12-78); AST/SGOT 32 U/L (15-37); Albumin 3.4 g/dL (3.4-5.0); Alkaline Phosphatase 94 U/L (45-117); BUN Blood Urea Nitrogen 11 mg/dL (7-18); Bicarbonate 23 mmol/L (21-32); Bilirubin Direct 0.2 mg/dL (0-0.2); Bilirubin Total 0.6 mg/dL (0.2-1.0); Glucose Level 310 mg/dL (74-106); Magnesium 2.1 mg/dL (1.8-2.4); NT PRO-BNP 59 pg/mL (<125); Potassium 3.6 mmol/L (3.5-5.1); Protein, Total 7.4 g/dL (6.4-8.2); Sodium Level 135 mmol/L (136-145); Troponin (Emerg Dept Use Only) < 0.02 ng/mL (0.0-0.045)
[2020-06-11] MEDS ORDERED: INSULIN -REGULAR HUMAN 50 UNIT/0.5 ML ML ONE (18:22)
--- NOTE | 2020-06-11 18:36 | RAD REPORT ---
EXAM DESCRIPTION: CT - Chest For Pe Angio - 06/11/2020 6:18 pm CLINICAL HISTORY: Chest pain. SOB COMPARISON: CTANGIO CHEST dated 03/10/2014 TECHNIQUE: CT angiogram of the pulmonary arteries was performed with MIP. All CT scans are performed using dose optimization technique as appropriate and may include automated exposure control or mA/KV adjustment according to patient size. FINDINGS: No evidence of pulmonary thromboembolism. No acute aortic finding demonstrated. Moderate ground-glass opacities are present bilaterally, compatible with COVID-19 infection. No significant pericardial or pleural fluid. No concerning bony finding. IMPRESSION: No evidence of pulmonary thromboembolism. Moderate ground-glass opacities are present throughout the lungs most compatible with COVID-19 infect ion.
--- NOTE | 2020-06-11 18:48 | EDPHYS ---
Physician Documentation [facility] Name: Prabha Barnes Age: 64 yrs Sex: Female : 1955 Arrival Date: 06/11/2020 Time: 13:45 Bed 20 Private MD: ED Physician Kurtis Wood HPI: 06/11 16:00 This 64 yrs old Female presents to ER via Ambulatory with complaints of cp Breathing Difficulty. 16:00 The patient has shortness of breath with light activity. Onset: The symptoms/episode cp began/occurred last month. Duration: The symptoms are continuous, and are steadily getting worse. The patient's shortness of breath is aggravated by light activity. Associated signs and symptoms: Pertinent positives: non-productive cough, Pertinent negatives: chest pain, diaphoresis, dizziness, fever. 16:00 Patient reports being diagnosed with COVID-19 infection after being seen last month cp 05-11-2020. Reports continued cough, shortness of breath. Denies fever, denies chest pain. Cough worse with deep inspiration. Historical: - Allergies: 14:09 NKDA; ll1 - PMHx: 14:09 constipation; Depression; Diabetes - NIDDM; TIA; ll1 - PSHx: 14:09 Heart Cath; ll1 - Immunization history:: Flu vaccine is up to date. - Social history:: Smoking status: Patient denies any tobacco usage or history of. Patient/guardian denies using tobacco, the patient reports quitting approximately 40 years ago. ROS: 16:05 Constitutional: Negative for body aches, chills, fever, poor PO intake. cp 16:05 Eyes: Negative for injury, pain, redness, and discharge. cp 16:05 ENT: Negative for ear pain, sore throat, difficulty swallowing, difficulty handling secretions. 16:05 Cardiovascular: Negative for chest pain, edema, palpitations. 16:05 Respiratory: Positive for cough, "sounds productive", shortness of breath, on exertion. Negative for wheezing. 16:05 Abdomen/GI: Negative for abdominal pain, nausea, vomiting, and diarrhea. 16:05 Back: Negative for radiated pain. 16:05 : Negative for urinary symptoms. 16:05 Neuro: Negative for altered mental status, headache, syncope, weakness. 16:05 All other systems are negative. Exam: 16:10 Constitutional: The patient appears in no acute distress, alert, awake, cp non-diaphoretic, non-toxic, well developed, well nourished. 16:10 Head/Face: Normocephalic, atraumatic. cp 16:10 Eyes: Periorbital structures: appear normal, Conjunctiva: normal, no exudate, no injection, Sclera: no appreciated abnormality, Lids and lashes: appear normal, bilaterally. 16:10 ENT: External ear(s): are unremarkable, Ear canal(s): are normal, clear, TM's: bulging, is not appreciated, bilaterally, dullness, bilaterally, erythema, is not appreciated, bilaterally, Nose: is normal, Mouth: Lips: moist, Oral mucosa: pink and intact, moist, Posterior pharynx: Airway: no evidence of obstruction, patent. 16:10 Neck: ROM/movement: is normal, is supple, without pain, no range of motions limitations. 16:10 Chest/axilla: Inspection: normal, Palpation: is normal, no crepitus, no tenderness. 16:10 Cardiovascular: Rate: normal, Rhythm: regular, Edema: is not appreciated, JVD: is not appreciated. 16:10 Respiratory: the patient does not display signs of respiratory distress, Respirations: normal, no use of accessory muscles, no retractions, no splinting, no tachypnea, labored breathing, is not present, Breath sounds: bronchial sounds, that are mild, are heard diffusely, decreased breath sounds, are not appreciated, wheezing: is not appreciated. 16:10 Abdomen/GI: Exam negative for discomfort, distension, guarding, Inspection: abdomen appears normal. 16:10 Back: pain, is absent, ROM is normal. 16:10 Neuro: Orientation: to person, place \\T\\ time. Mentation: is normal. 16:50 ECG was reviewed by the Attending Physician. cp Vital Signs: 14:05 BP 153 / 72; Pulse 92; Resp 18; Temp 98.4; Pulse Ox 95% on R/A; Weight 107.05 kg; ll1 Height 5 ft. 2 in. (157.48 cm); Pain 0/10; 16:30 BP 136 / 58; Pulse 78; Resp 12; Pulse Ox 97% on R/A; vg1 17:00 BP 109 / 48; Pulse 82; Resp 22; Pulse Ox 97% on R/A; vg1 18:00 BP 145 / 76; Pulse 82; Resp 22; Pulse Ox 95% on R/A; vg1 19:15 Temp 97.6(TE); lp1 14:05 Body Mass Index 43.16 (107.05 kg, 157.48 cm) ll1 MDM: 15:41 Patient medically screened. cp 16:00 Differential diagnosis: Bronchitis CHF exacerbation, Chronic Obstructive Pulmonary cp Disease Myocardial Infarction pneumonia, pulmonary edema, Pulmonary Embolism Sepsis. 18:45 Data reviewed: vital signs, nurses notes, lab test result(s), EKG, radiologic studies, cp CT scan, plain films, and as a result, I will. 18:45 Test interpretation: by ED physician or midlevel provider: ECG. Counseling: I had a cp detailed discussion with the patient and/or guardian regarding: the historical points, exam findings, and any diagnostic results supporting the discharge/admit diagnosis, lab results, radiology results, the need for outpatient follow up, a family practitioner, to return to the emergency department if symptoms worsen or persist or if there are any questions or concerns that arise at home. Response to treatment: the patient's symptoms have markedly improved after treatment. ED course: VSS. No signs of respiratory distress and patient appears non-toxic. Will discharge to home for continued monitoring. 06/11 15:53 Order name: Basic Metabolic Panel 06/11 15:53 Order name: CBC with Diff; Complete Time: 17:39 06/11 15:53 Order name: LFT's 06/11 15:53 Order name: Magnesium; Complete Time: 17:39 06/11 15:53 Order name: NT PRO-BNP; Complete Time: 17:39 06/11 15:53 Order name: PT-INR; Complete Time: 18:37 06/11 15:53 Order name: Troponin (emerg Dept Use Only); Complete Time: 17:39 06/11 15:53 Order name: XRAY Chest (1 view); Complete Time: 17:20 06/11 17:20 Interpretation: Report review. 06/11 15:54 Order name: Basic Metabolic Panel; Complete Time: 17:39 EDMS 06/11 18:38 Interpretation: Normal except: NA 135; GLUC 310; GFR 55. 06/11 15:54 Order name: Liver (Hepatic) Function; Complete Time: 17:39 EDMS 06/11 17:40 Order name: LAB Add On cp 06/11 17:44 Order name: D-Dimer; Complete Time: 18:37 EDMS 06/11 18:37 Interpretation: Abnormal: D-DIMER 1003. cp 06/11 17:56 Order name: CT Chest For PE Angio; Complete Time: 18:37 cp 06/11 15:53 Order name: EKG; Complete Time: 15:54 cp 06/11 15:53 Order name: Cardiac monitoring; Complete Time: 17:07 cp 06/11 15:53 Order name: EKG - Nurse/Tech; Complete Time: 17:07 cp 06/11 15:53 Order name: IV Saline Lock; Complete Time: 17:07 cp 06/11 15:53 Order name: Labs collected and sent; Complete Time: 17:07 cp 06/11 15:53 Order name: O2 Per Protocol; Complete Time: 17:07 cp 06/11 15:53 Order name: O2 Sat Monitoring; Complete Time: 17:07 cp EC:50 Rate is 76 beats/min. Rhythm is regular. OH interval is normal. QRS interval is normal. cp QT interval is normal. T waves are Inverted in lead aVR. Interpreted by me. Reviewed by me. Administered Medications: 17:06 Drug: SOLU-Medrol 60 mg Route: IVP; Site: right antecubital; vg1 18:10 Follow up: Response: No adverse reaction vg1 17:06 Drug: Tessalon Perle 200 mg Route: PO; vg1 18:10 Follow up: Response: No adverse reaction vg1 18:09 Drug: NovoLIN R 5 units {Co-Signature: em (Jose Watkins RN).} Route: Sub-Q; Site: right vg1 lower abdomen; 19:29 Follow up: Response: No adverse reaction lp1 Disposition: 06/12 14:05 Co-signature as Attending Physician, Kurtis Wood MD I agree with the assessment and kdr plan of care. Disposition: 06/11/20 18:47 Discharged to Home. Impression: Pneumonia due to other specified infectious organisms. - Condition is Stable. - Discharge Instructions: Community-Acquired Pneumonia, Adult, COVID-19. - Prescriptions for Augmentin 875- 125 mg Oral Tablet - take 1 tablet by ORAL route every 12 hours for 10 days; 20 tablet. Albuterol Sulfate 2.5 mg /3 mL (0.083 %) Inhalation Solution for Nebulization - inhale 1 unit by NEBULIZATION route every 8 hours As needed; 1 box. Prednisone 20 mg Oral Tablet - take 1 tablet by ORAL route every 12 hours for 5 days then take 1/2 tablet every 12 hours for 5 days; 15 tablet. Albuterol Sulfate 90 mcg/actuation - inhale 1-2 puff by INHALATION route every 4-6 hours; 1 Inhaler. - Medication Reconciliation Form, Thank You Letter, Antibiotic Education, Prescription Opioid Use form. - Follow up: Private Physician; When: 2 - 3 days; Reason: Recheck today's complaints. - Problem is new. - Symptoms have improved. Signatures: Dispatcher [employer] EDMS Kurtis Wood MD MD kdr Pat Ferris RN RN lp1 Jose Samano PA PA cp Garcia, Victoria RN RN vg1 Isaias Michaels RN RN ll1 Jose Watkins RN em Corrections: (The following items were deleted from the chart) 06/11 17:44 17:40 D-DIMER+COAG.LAB.BRZ ordered. [facility] 19:36 18:47 06/11/2020 18:47 Discharged to Home. Impression: Pneumonia due to other specified lp1 infectious organisms. Condition is Stable. Forms are Medication Reconciliation Form, Thank You Letter, Antibiotic Education, Prescription Opioid Use. Follow up: Private Physician; When: 2 - 3 days; Reason: Recheck today's complaints. Problem is new. Symptoms have improved. cp
--- NOTE | 2020-06-11 18:48 | ER ---
Nurse's Notes [facility] Name: Prabha Barnes Age: 64 yrs Sex: Female : 1955 Arrival Date: 06/11/2020 Time: 13:45 Bed 20 Private MD: Diagnosis: Pneumonia due to other specified infectious organisms Presentation: 06/11 14:05 Chief complaint: Patient states: SOB with exertion since May 09. Diagnosed with ll1 covid last month. Coronavirus screen: Client denies travel out of the [place] in the last 14 days. cough unrelated to allergies, difficulty breathing, fatigue, shortness of breath, Client presents with at least one sign or symptom that may indicate coronavirus-19. Standard/surgical mask placed on the client. Ebola Screen: Patient denies travel to an Ebola-affected area in the 21 days before illness onset. Initial Sepsis Screen: Does the patient meet any 2 criteria? HR > 90 bpm. No. Patient's initial sepsis screen is negative. Does the patient have a suspected source of infection? Yes: Productive cough/pneumonia. Risk Assessment: Do you want to hurt yourself or someone else? Patient reports no desire to harm self or others. Onset of symptoms was May 09, 2020. 14:05 Method Of Arrival: Ambulatory ll1 14:05 Acuity: CAITLYN 3 ll1 Triage Assessment: 14:05 General: Appears in no apparent distress. Behavior is calm, cooperative, appropriate ll1 for age. Pain: Denies pain. Neuro: No deficits noted. Cardiovascular: No deficits noted. Respiratory: Reports shortness of breath on exertion cough that is Airway is patent Trachea midline Respiratory effort is even, unlabored, Respiratory pattern is regular, symmetrical, Onset: The symptoms/episode began/occurred the patient has mild shortness of breath. Historical: - Allergies: 14:09 NKDA; ll1 - PMHx: 14:09 constipation; Depression; Diabetes - NIDDM; TIA; ll1 - PSHx: 14:09 Heart Cath; ll1 - Immunization history:: Flu vaccine is up to date. - Social history:: Smoking status: Patient denies any tobacco usage or history of. Patient/guardian denies using tobacco, the patient reports quitting approximately 40 years ago. Screenin:09 Abuse screen: Denies threats or abuse. Nutritional screening: No deficits noted. vg1 Tuberculosis screening: No symptoms or risk factors identified. Fall Risk No fall in past 12 months (0 pts). No secondary diagnosis (0 pts). IV access (20 points). Ambulatory Aid- None/Bed Rest/Nurse Assist (0 pts). Gait- Normal/Bed Rest/Wheelchair (0 pts) Mental Status- Oriented to own ability (0 pts). Total Diaz Fall Scale indicates No Risk (0-24 pts). Assessment: 16:35 General: Appears in no apparent distress. comfortable, Behavior is calm, cooperative. vg1 Pain: Denies pain. Neuro: Level of Consciousness is awake, alert, obeys commands, Oriented to person, place, time, situation. Cardiovascular: Rhythm is sinus rhythm. Respiratory: Reports shortness of breath on exertion cough that is productive, Airway is patent Respiratory effort is even, unlabored, Respiratory pattern is regular, symmetrical, Breath sounds are clear bilaterally. GI: Patient currently denies diarrhea, nausea, vomiting. : No signs and/or symptoms were reported regarding the genitourinary system. EENT: No signs and/or symptoms were reported regarding the EENT system. Derm: Skin is intact, is healthy with good turgor. Musculoskeletal: Circulation, motion, and sensation intact. 18:11 Reassessment: Patient appears in no apparent distress at this time. Patient and/or vg1 family updated on plan of care and expected duration. Pain level reassessed. Patient is alert, oriented x 3, equal unlabored respirations, skin warm/dry/pink. 19:35 Reassessment: Patient appears in no apparent distress at this time. Patient is alert, lp1 oriented x 3, equal unlabored respirations, skin warm/dry/pink. Patient presents with readiness for discharge. Vital Signs: 14:05 BP 153 / 72; Pulse 92; Resp 18; Temp 98.4; Pulse Ox 95% on R/A; Weight 107.05 kg; ll1 Height 5 ft. 2 in. (157.48 cm); Pain 0/10; 16:30 BP 136 / 58; Pulse 78; Resp 12; Pulse Ox 97% on R/A; vg1 17:00 BP 109 / 48; Pulse 82; Resp 22; Pulse Ox 97% on R/A; vg1 18:00 BP 145 / 76; Pulse 82; Resp 22; Pulse Ox 95% on R/A; vg1 19:15 Temp 97.6(TE); lp1 14:05 Body Mass Index 43.16 (107.05 kg, 157.48 cm) ll1 ED Course: 13:45 Patient arrived in ED. rg4 14:08 Triage completed. ll1 14:10 Arm band placed on. ll1 15:39 Jose Samano PA is PHCP. cp 15:39 Kurtis Wood MD is Attending Physician. cp 15:51 Angie Moraes, RN is Primary Nurse. vg1 16:19 XRAY Chest (1 view) In Process Unspecified. EDMS 16:55 Initial lab(s) drawn, by or, sent to lab. Inserted saline lock: 22 gauge in right vg1 antecubital area, using aseptic technique. Blood collected. 17:09 Patient has correct armband on for positive identification. Bed in low position. Call vg1 light in reach. Side rails up X 1. panel monitor on. Pulse ox on. NIBP on. 18:[address] via wheelchair. vg1 18:18 CT Chest For PE Angio In Process Unspecified. EDMS 19:36 No provider procedures requiring assistance completed. IV discontinued, No lp1 redness/swelling at site. Pressure dressing applied. Administered Medications: 17:06 Drug: SOLU-Medrol 60 mg Route: IVP; Site: right antecubital; vg1 18:10 Follow up: Response: No adverse reaction vg1 17:06 Drug: Tessalon Perle 200 mg Route: PO; vg1 18:10 Follow up: Response: No adverse reaction vg1 18:09 Drug: NovoLIN R 5 units {Co-Signature: brittany (Jose Watkins RN).} Route: Sub-Q; Site: right vg1 lower abdomen; 19:29 Follow up: Response: No adverse reaction lp1 Outcome: 18:47 Discharge ordered by MD. cp 19:36 Discharged to home ambulatory. lp1 19:36 Condition: good 19:36 Discharge instructions given to patient, Instructed on discharge instructions, follow up and referral plans. medication usage, Demonstrated understanding of instructions, follow-up care, medications, Prescriptions given X 4. 19:36 Patient left the ED. lp1 Signatures: Dispatcher [employer] EDPat Robles RN RN lp1 Jose Samano PA PA cp Garcia, Rubi rg4 Angie Moraes, RN RN vg1 Isaias Michaels, RN RN ll1 Jose Watkins RN em
[2020-06-11 19:55] VITALS: BP 145/76; O2SAT 95
[2020-06-11 19:56] VITALS: TEMP 97.6
== END 2020-06-11 19:36 | disposition home or self-care (01) ==
LOC: ER 13:44
DX: J16.8 Pneumonia due to other specified infectious organisms (principal); Z86.16 Personal history of COVID-19
CPT/HCPCS: 93005; 85025; 80048; 36415; 83735; 85610; 85379; 80076; 84484; 83880; 71275; 71045; 96372; 96374; 99285; Q9967; J2920

== ENCOUNTER 2021-05-05 11:03 | Emergency (ER) | payer OTHER ==
--- NOTE | 2021-05-05 12:18 | RAD REPORT ---
EXAM DESCRIPTION: RAD - Knee Left 3 View - 05/05/2021 12:09 pm CLINICAL HISTORY: PAINin the left hip and knee, multiple falls COMPARISON: Hip Left 2 View dated 05/05/2021 FINDINGS: No fracture, dislocation or periosteal reaction.No joint effusion seen. Medial compartment narrowing is present with marginal spurring. Mild spurring seen along the tibial spine with minimal spurring along the articular margins of the patella. No soft tissue abnormality. IMPRESSION: Moderate severity medial compartment left knee joint degenerative change. No acute bone or joint finding seen. Clinical concerns for internal derangement or occult bony injury could be further assessed with MR im aging.
--- NOTE | 2021-05-05 12:21 | RAD REPORT ---
EXAM DESCRIPTION: RAD - Hip Left 2 View - 05/05/2021 12:11 pm CLINICAL HISTORY: PAIN, history of multiple falls COMPARISON: No comparisons FINDINGS: AP and frogleg views of the left hip were obtained. Significant degenerative disc disease is present at L4-5 with a slight right lateral subluxation of L 4. Lumbar assessment is limited. Mild symmetric SI joint degenerative changes are present. Fracture of the sacral ala not identified. No fracture of the left hemipelvis is identified. Degenerative changes are seen along the superior a cetabular rim. No acetabular fractures seen. No AVN or focal femoral head abnormality and no fracture of the proximal femur. Degenerative bony hypertrophy seen along the greater trochanter. No suspicious soft tissue finding. IMPRESSION: No fracture or acute left hip joint finding. Degenerative changes involve the left hip joint and lumbar spine.
[2021-05-05] MEDS ORDERED: CODEINE 30MG/APAP 300MG TAB ONE (14:27)
--- NOTE | 2021-05-05 15:00 | RAD REPORT ---
EXAM DESCRIPTION: CT - Spine Lumbar Wo Con - 05/05/2021 2:43 pm CLINICAL HISTORY: Radiculopathy. PAIN COMPARISON: No comparisons TECHNIQUE: Axial noncontrast CT imaging of the lumbar spine was performed with coronal and sagittal re-formatted images. All CT scans are performed using dose optimization technique as appropriate and may include automated exposure control or mA/KV adjustment according to patient size. FINDINGS: No acute lumbar spine fracture seen. No aggressive marrow pattern or malalignment. Multile germán degenerative disc disease. There is diffuse disc height loss which is severe at L4-5 and moderate at L2-3 and L3-4. Nonobstructive nephrolithiasis. Paraspinal tissues are normal in thickness. No paraspinal abscess or hematoma seen. Intervertebral disc disease assessment is inherently limited by CT. Moderate left paracentral disc protrusion is present at L3-4 which is angled inferiorly resulting in severe left lateral recess stenosis as well as compression of the exiting left L4 nerve root. Other d egenerative changes are noted as well. Note is made of at least moderate central spinal stenosis at L 4-5 . IMPRESSION: No acute fracture of the lumbar spine is identified. Though CT is not optimal for evalua tion of disc pathology, a suspected left paracentral disc protrusion is present at L3-4 which could c ertainly explain a left-sided radiculopathy. Consider MRI, which need not be emergent, for further ev aluation.
--- NOTE | 2021-05-05 15:22 | ER ---
Nurse's Notes [facility] Name: Prabha Barnes Age: 65 yrs Sex: Female : 1955 Arrival Date: 05/05/2021 Time: 11:04 Bed 10 Private MD: Diagnosis: Sciatica, left side;Intervertebral disc disorders with radiculopathy, lumbar region Presentation: 05/05 11:40 Chief complaint: Patient states: L hip pain that began 1 month ago after a fall. ss Coronavirus screen: Client denies travel out of the [place] in the last 14 days. Ebola Screen: Patient denies exposure to infectious person. Patient denies travel to an Ebola-affected area in the 21 days before illness onset. Initial Sepsis Screen: Does the patient meet any 2 criteria? No. Patient's initial sepsis screen is negative. Does the patient have a suspected source of infection? No. Patient's initial sepsis screen is negative. Risk Assessment: Do you want to hurt yourself or someone else? Patient reports no desire to harm self or others. Onset of symptoms was March 2021. 11:40 Method Of Arrival: Wheelchair ss 11:40 Acuity: CAITLYN 4 ss Historical: - Allergies: 11:41 NKDA; ss - PMHx: 11:41 constipation; Depression; Diabetes - NIDDM; TIA; ss - Immunization history:: Client reports receiving the 2nd dose of the Covid vaccine. - Social history:: Smoking status: Patient denies any tobacco usage or history of. Screenin:04 Abuse screen: Denies threats or abuse. Denies injuries from another. Nutritional iw screening: No deficits noted. Tuberculosis screening: No symptoms or risk factors identified. Fall Risk None identified. Assessment: 14:00 General: Appears in no apparent distress. Behavior is calm, cooperative. Pain: iw Complains of pain in left hip. Neuro: Level of Consciousness is awake, alert, obeys commands, Oriented to person, place, time, situation, Moves all extremities. Full function. Cardiovascular: Patient's skin is warm and dry. Respiratory: Respiratory effort is even, unlabored, Respiratory pattern is regular, symmetrical. Derm: Skin is intact, is healthy with good turgor. Musculoskeletal: Range of motion: intact in all extremities, Reports pain in left hip. 15:04 Reassessment: Patient appears in no apparent distress at this time. Patient and/or iw family updated on plan of care and expected duration. Pain level reassessed. Patient is alert, oriented x 3, equal unlabored respirations, skin warm/dry/pink. Vital Signs: 11:41 BP 149 / 86; Pulse 84; Resp 16; Temp 98.7(TE); Pulse Ox 100% on R/A; Weight 101.15 kg; Height 5 ft. 2 in. (157.48 cm); Pain 9/10; 11:41 Body Mass Index 40.79 (101.15 kg, 157.48 cm) ED Course: 11:04 Patient arrived in ED. kc5 11:41 Triage completed. ss 11:41 Arm band placed on right wrist. ss 12:06 XRAY Hip LEFT 2 view In Process Unspecified. EDMS 12:06 XRAY Knee LEFT 3 view In Process Unspecified. EDMS 13:56 Antonieta Whipple RN is Primary Nurse. iw 14:02 Kurtis Wood MD is Attending Physician. kdr 14:42 CT Lumbar Spine Wo Con In Process Unspecified. EDMS 15:05 No provider procedures requiring assistance completed. Patient did not have IV access iw during this emergency room visit. Administered Medications: 14:54 Drug: Tylenol #3 (300 mg-30 mg) 2 tabs Route: PO; iw 15:15 Follow up: Response: No adverse reaction iw Outcome: 15:21 Discharge ordered by . kdr 16:07 Discharged to home ambulatory. iw 16:08 Patient left the ED. eb Signatures: Dispatcher [employer] EDOH Kurtis Wood MD MD [facility] Antonieta Whipple RN RN Eleanor De La Garza RN RN Aleta Garza Mikala Lord [id number]
--- NOTE | 2021-05-05 15:22 | EDPHYS ---
Physician Documentation [facility] Name: Prabha Barnes Age: 65 yrs Sex: Female : 1955 Arrival Date: 05/05/2021 Time: 11:04 Bed 10 Private MD: ED Physician Kurtis Wood HPI: 05/05 16:30 This 65 yrs old Female presents to ER via Wheelchair with complaints of Hip Pain. kdr 16:30 The patient or guardian reports Patient complains of pain in her left sciatic kdr distribution. This includes her left hip left knee and left foot as well as her left buttock area. The discomfort has been ongoing for about a month and been persistent. It is not necessarily significantly worse but has been persistent and she has not been unable to sleep at night due to the pain. The complaints affect the left gluteus onur. Onset: The symptoms/episode began/occurred suddenly, 1 month(s) ago. Modifying factors: The symptoms are alleviated by nothing, the symptoms are aggravated by any movement. Associated signs and symptoms: Loss of consciousness: the patient experienced no loss of consciousness, Pertinent positives: None. Pertinent negatives: abdominal pain, altered mental status, chest pain, diarrhea, dizziness, dysuria, fever. Severity of symptoms: At their worst the symptoms were mild, moderate, just prior to arrival, in the emergency department the symptoms are unchanged. The patient has not experienced similar symptoms in the past. The patient has not recently seen a physician. Historical: - Allergies: 11:41 NKDA; ss - PMHx: 11:41 constipation; Depression; Diabetes - NIDDM; TIA; ss - Immunization history:: Client reports receiving the 2nd dose of the Covid vaccine. - Social history:: Smoking status: Patient denies any tobacco usage or history of. ROS: 16:30 Constitutional: Negative for fever, chills, and weight loss, Eyes: Negative for injury, kdr pain, redness, and discharge, Neck: Negative for injury, pain, and swelling, Cardiovascular: Negative for chest pain, palpitations, and edema, Respiratory: Negative for shortness of breath, cough, wheezing, and pleuritic chest pain, Abdomen/GI: Negative for abdominal pain, nausea, vomiting, diarrhea, and constipation, : Negative for injury, bleeding, discharge, and swelling, Skin: Negative for injury, rash, and discoloration, Neuro: Negative for headache, weakness, numbness, tingling, and seizure activity. Psych: Negative for depression, anxiety, suicide ideation, homicidal ideation, and hallucinations, Allergy/Immunology: Negative for hives, rash, and allergies, Endocrine: Negative for neck swelling, polydipsia, polyuria, polyphagia, and marked weight changes, Hematologic/Lymphatic: Negative for swollen nodes, abnormal bleeding, and unusual bruising. 16:30 Back: Positive for pain at rest, pain with movement, of the left low back. 16:30 MS/extremity: Positive for Pain that radiates down the left sciatic distribution. Exam: 16:30 Constitutional: This is a well developed, well nourished patient who is awake, alert, kdr and in no acute distress. Head/Face: Normocephalic, atraumatic. Eyes: Pupils equal round and reactive to light, extra-ocular motions intact. Lids and lashes normal. Conjunctiva and sclera are non-icteric and not injected. Cornea within normal limits. Periorbital areas with no swelling, redness, or edema. Neck: Trachea midline, no thyromegaly or masses palpated, and no cervical lymphadenopathy. Supple, full range of motion without nuchal rigidity, or vertebral point tenderness. No Meningismus. Chest/axilla: Normal chest wall appearance and motion. Nontender with no deformity. No lesions are appreciated. 16:30 Back: pain, that is mild, that is moderate, of the thoracic area, lumbar area, left low back and left mid back, ROM is painful, with all movement, CVA tenderness, is absent, vertebral tenderness, is not appreciated, muscle spasm, is appreciated in the left low back, left mid back, right mid back and right low back, Straight leg raises: right lower extremity illicits pain, at 45 degrees, left lower extremity illicits pain, at 30 degrees. Vital Signs: 11:41 BP 149 / 86; Pulse 84; Resp 16; Temp 98.7(TE); Pulse Ox 100% on R/A; Weight 101.15 kg; ss Height 5 ft. 2 in. (157.48 cm); Pain 9/10; 11:41 Body Mass Index 40.79 (101.15 kg, 157.48 cm) ss MDM: 15:21 Patient medically screened. kdr 16:30 Data reviewed: vital signs, nurses notes, lab test result(s), radiologic studies. kdr Counseling: I had a detailed discussion with the patient and/or guardian regarding: the historical points, exam findings, and any diagnostic results supporting the discharge/admit diagnosis, lab results, radiology results, the need for outpatient follow up. 05/05 11:43 Order name: XRAY Hip LEFT 2 view; Complete Time: 14:02 ss 05/05 11:43 Order name: XRAY Knee LEFT 3 view; Complete Time: 14:02 ss 05/05 14:23 Order name: CT Lumbar Spine Wo Con; Complete Time: 15:19 kdr Administered Medications: 14:54 Drug: Tylenol #3 (300 mg-30 mg) 2 tabs Route: PO; iw 15:15 Follow up: Response: No adverse reaction iw Disposition Summary: 05/05/21 15:21 Discharge Ordered Location: Home kdr Problem: an ongoing problem kdr Symptoms: have improved kdr Condition: Fair kdr Diagnosis - Sciatica, left side kdr - Intervertebral disc disorders with radiculopathy, lumbar region kdr Followup: kdr - With: Private Physician - When: 2 - 3 days - Reason: If symptoms return, Further diagnostic work-up, Recheck today's complaints, Continuance of care, Re-evaluation by your physician Discharge Instructions: - Discharge Summary Sheet kdr - Herniated Disk kdr - Lumbosacral Radiculopathy kdr - Degenerative Disk Disease kdr - Sciatica, Rqik-cf-Oaok kdr - Radicular Pain kdr Forms: - Medication Reconciliation Form kdr - Thank You Letter kdr - Prescription Opioid Use kdr Prescriptions: - Cyclobenzaprine 10 mg Oral Tablet - take 1 tablet by ORAL route every 8 hours As needed; 30 tablet; Refills: 0, kdr Product Selection Permitted - Tylenol-Codeine #3 300 mg-30 mg Oral - take 2 tablet by ORAL route At bedtime As needed; 16 tablet; Refills: 0, kdr Product Selection Permitted Signatures: Dispatcher [employer] Kurtis Walton MD MD kdr Antonieta Whipple RN RN iw Eleanor De La Garza RN RN ss
[2021-05-05 16:13] VITALS: BP 149/86; TEMP 98.7; O2SAT 100
== END 2021-05-05 16:08 | disposition home or self-care (01) ==
LOC: ER 11:03
DX: M51.16 Intervertebral disc disorders with radiculopathy, lumbar region (principal)
CPT/HCPCS: 72131; 99283

== ENCOUNTER 2021-05-08 22:05 | Inpatient (IN) | payer OTHER ==
[2021-05-09] MEDS ORDERED: NA CHLORIDE 0.9% 1,000 ML ONE (01:23)
[2021-05-09] MEDS ORDERED: ONDANSETRON 4 MG/2 ML VIAL ONE (01:23)
[2021-05-09] MEDS ORDERED: MORPHINE 2 MG/ML SYR ONE (01:23)
--- NOTE | 2021-05-09 02:19 | ER ---
Nurse's Notes [facility] Name: Prabha Barnes Age: 65 yrs Sex: Female : 1955 Arrival Date: 05/08/2021 Time: 22:14 Bed 8 Private MD: Diagnosis: Sciatica, left side-L3-4 herniated disc;Acute embolism and thrombosis of deep veins of lower extremity;Type 2 diabetes mellitus with hyperglycemia Presentation: 05/08 22:37 Chief complaint: Patient states: left hip and leg pain x 1 month. Coronavirus screen: da3 Vaccine status: Patient reports receiving the 2nd dose of the covid vaccine. Ebola Screen: No symptoms or risks identified at this time. Initial Sepsis Screen: Does the patient meet any 2 criteria? No. Patient's initial sepsis screen is negative. Does the patient have a suspected source of infection? No. Patient's initial sepsis screen is negative. Risk Assessment: Do you want to hurt yourself or someone else? Patient reports no desire to harm self or others. Onset of symptoms was April 10, 2021. 22:37 Method Of Arrival: Ambulatory da3 22:37 Acuity: CAITLYN 3 da3 Triage Assessment: 22:37 General: Appears in no apparent distress. uncomfortable, Behavior is calm, cooperative. da3 Musculoskeletal: Reports pain in left leg. Historical: - Allergies: 05/09 01:25 NKDA; lp1 - Home Meds: 01:25 aspirin 81 mg Oral chew 1 tab once daily [Active]; citalopram 40 mg tab 1 tab once lp1 daily [Active]; docusate sodium 100 mg Oral cap 1 cap once daily [Active]; Linzess 290 mcg Oral cap 1 cap once daily [Active]; Lipitor 40 mg Oral tab [Active]; Plavix Oral 1 tab once daily [Active]; semaglutide injection [Active]; valsartan 80 mg Oral tab 1 tab once daily [Active]; - PMHx: 01:25 constipation; Depression; Diabetes - NIDDM; TIA; lp1 - Immunization history:: Client reports receiving the 2nd dose of the Covid vaccine. - Social history:: Smoking status: Patient/guardian denies using tobacco, the patient reports quitting approximately 30 years ago. - Family history:: not pertinent. Screenin:01 Abuse screen: Denies threats or abuse. Denies injuries from another. Nutritional lp1 screening: No deficits noted. Tuberculosis screening: No symptoms or risk factors identified. Fall Risk Total Diaz Fall Scale indicates High Risk Score (45 or more points). Fall prevention measures have been instituted. Side Rails Up X 2 As available patient and family educated on Fall Prevention Program and Strategies. Assessment: 00:45 General: Appears uncomfortable, Behavior is appropriate for age. Pain: Complains of lp1 pain in left low back and left knee Pain radiates to left quadriceps Pain currently is 7 out of 10 on a pain scale. Quality of pain is described as piercing. Neuro: Level of Consciousness is awake, alert, obeys commands, Oriented to person, place, time, situation, Intact. Cardiovascular: Patient's skin is warm and dry. Respiratory: Respiratory effort is even, unlabored. GI: Abdomen is obese. : No signs and/or symptoms were reported regarding the genitourinary system. EENT: No signs and/or symptoms were reported regarding the EENT system. Derm: Skin is intact, Skin is dry, Skin is normal. Musculoskeletal: Circulation, motion, and sensation intact. Range of motion: intact in all extremities, Reports pain in left low back. 01:34 General: Reports " I have been having this pain for a while now, but I cannot sleep, tw5 and I cannot stand this pain.". 01:46 Pain: Noted to be moaning. tw5 02:05 Reassessment: Ultrasound at bedside. lp1 02:28 Reassessment: Patient rates low back/left hip pain 3/10 on pain scale; appears lp1 comfortable, quiet, falls asleep after IV insertion. 03:03 Reassessment: Patient asleep on arrival into room; Reports comfortable, no need for lp1 medications at this time; States "I've had more sleep here than at home". 04:45 Reassessment: Patient is alert, oriented x 3, equal unlabored respirations, skin lp1 warm/dry/pink. [place] [facility] specimen collected by clean catch. Vital Signs: 05/08 22:37 BP 144 / 60; Pulse 84; Resp 22; Temp 98.0; Pulse Ox 100% on R/A; Weight 101.15 kg; da3 Height 5 ft. 2 in. (157.48 cm); 05/09 00:45 BP 145 / 73; Pulse 82; Resp 18; Pulse Ox 97% on R/A; Pain 8/10; lp1 02:00 BP 126 / 72; Pulse 80; Resp 18; Pulse Ox 98% on R/A; lp1 04:30 BP 118 / 61; Pulse 82; Resp 18; Pulse Ox 94% on R/A; lp1 05:28 BP 110 / 47; Pulse 82; Resp 18; Pulse Ox 95% on R/A; lp1 05/08 22:37 Body Mass Index 40.79 (101.15 kg, 157.48 cm) da3 ED Course: 05/08 22:14 Patient arrived in ED. da3 22:37 Arm band placed on right wrist. da3 22:43 Triage completed. da3 05/09 00:27 Pat Ferris, RN is Primary Nurse. lp1 00:37 Jose Yanez MD is Attending Physician. leonel 01:02 Patient has correct armband on for positive identification. Placed in gown. Bed in low lp1 position. Pulse ox on. NIBP on. 01:39 XRAY Chest (1 view) In Process Unspecified. EDMS 01:43 EKG done, by ED staff. tw5 01:46 Patient taken to ultrasound. tw5 02:17 Roberto Carlos Horn MD is Referral Physician. leonel 02:20 US Extremity Venous Unilateral Ltd In Process Unspecified. EDMS 02:20 Extremity Venous Uni Ltd In Process Unspecified. EDMS 02:27 Initial lab(s) drawn, by wa, sent to lab. Inserted saline lock: 20 gauge in right lp1 forearm, using aseptic technique. Blood collected. 02:43 Johan Schwab MD is Hospitalizing Provider. leonel 04:48 No provider procedures requiring assistance completed. Patient admitted, IV remains in lp1 place. Administered Medications: 02:32 Drug: NS 0.9% 1000 ml Route: IV; Rate: 1 bolus; Site: right forearm; lp1 04:49 Follow up: IV Status: Completed infusion; IV Intake: 1000ml lp1 03:03 Drug: Lovenox (enoxaparin) 100 mg Route: Sub-Q; Site: right lower abdomen; lp1 05:42 Follow up: Response: No adverse reaction lp1 04:20 Not Given (Physician Discretion; Per KAVITA Harden): morphine 4 mg IVP once; RASS on lp1 ADMIN: Combtv4, Very Agttd3, Agttd2, Rstlss1, AlertClm0, Drwsy-1, Lt Sdtn-2, Mod Sdtn-3, Dp Sdtn-4, UnArsble-5 04:20 Not Given (Physician Discretion; Per KAVITA Harden): Valium (diazepam) 5 mg PO once lp1 05:29 Not Given (Patient Refused): Zofran (Ondansetron) 4 mg IVP once; over 2 minutes lp1 05:42 Not Given (Patient Refused): Decadron - Dexamethasone 10 mg IVP once lp1 05:42 Not Given (Patient Refused): Ketorolac 30 mg IVP once lp1 Intake: 04:49 IV: 1000ml; Total: 1000ml. lp1 Outcome: 02:19 Discharge ordered by . [facility] 02:46 Decision to Hospitalize by Provider. [facility] 04:49 Condition: stable lp1 04:49 Instructed on the need for admit. 05:42 Admitted to Med/surg with chart. lp1 05:43 Patient left the ED. lp1 Signatures: Dispatcher [employer] EDMS Jose Yanez MD MD cha Pena, Laura, RN RN lp1 Alexis Peacock, RN RN Chary Brown tw5
--- NOTE | 2021-05-09 02:19 | EDPHYS ---
Physician Documentation [facility] Name: Prabha Barnes Age: 65 yrs Sex: Female : 1955 Arrival Date: 05/08/2021 Time: 22:14 Bed 8 Private MD: TING Physician Jose Yanez HPI: 05/09 01:20 This 65 yrs old Female presents to ER via Ambulatory with complaints of Hip leonel Pain, Knee Pain, Back Pain, Unable to sleep. 01:20 The patient or guardian reports decreased range of motion, pain. sustained from unknown leonel reason, There is no obvious deformity, The patient is able to ambulate with assistance. The patient is able to bear partial body weight. There is no radiation of the patient's discomfort. The complaints affect the left upper thigh and left knee. Onset: The symptoms/episode began/occurred 3 day(s) ago. Modifying factors: The symptoms are alleviated by remaining still, the symptoms are aggravated by any movement, weight bearing. Associated signs and symptoms: Loss of consciousness: the patient experienced no loss of consciousness, Pertinent positives:. Severity of symptoms: At their worst the symptoms were moderate, in the emergency department the symptoms have resolved. The patient has not experienced similar symptoms in the past. Historical: - Allergies: 01:25 NKDA; lp1 - Home Meds: 01:25 aspirin 81 mg Oral chew 1 tab once daily [Active]; citalopram 40 mg tab 1 tab once lp1 daily [Active]; docusate sodium 100 mg Oral cap 1 cap once daily [Active]; Linzess 290 mcg Oral cap 1 cap once daily [Active]; Lipitor 40 mg Oral tab [Active]; Plavix Oral 1 tab once daily [Active]; semaglutide injection [Active]; valsartan 80 mg Oral tab 1 tab once daily [Active]; - PMHx: 01:25 constipation; Depression; Diabetes - NIDDM; TIA; lp1 - Immunization history:: Client reports receiving the 2nd dose of the Covid vaccine. - Social history:: Smoking status: Patient/guardian denies using tobacco, the patient reports quitting approximately 30 years ago. - Family history:: not pertinent. ROS: 01:20 Constitutional: Negative for fever, chills, and weight loss, Eyes: Negative for injury, leonel pain, redness, and discharge, ENT: Negative for injury, pain, and discharge, Neck: Negative for injury, pain, and swelling, Cardiovascular: Negative for chest pain, palpitations, and edema, Respiratory: Negative for shortness of breath, cough, wheezing, and pleuritic chest pain, Abdomen/GI: Negative for abdominal pain, nausea, vomiting, diarrhea, and constipation, : Negative for injury, bleeding, discharge, and swelling, Skin: Negative for injury, rash, and discoloration, Neuro: Negative for headache, weakness, numbness, tingling, and seizure, Psych: Negative for depression, anxiety, suicide ideation, homicidal ideation, and hallucinations, Allergy/Immunology: Negative for hives, rash, and allergies, Endocrine: Negative for neck swelling, polydipsia, polyuria, polyphagia, and marked weight changes, Hematologic/Lymphatic: Negative for swollen nodes, abnormal bleeding, and unusual bruising. 01:20 Back: Positive for pain with movement, radiated pain. 01:20 MS/extremity: Positive for tenderness, of the left hip and left knee. Exam: 01:20 Constitutional: This is a well developed, well nourished patient who is awake, alert, leonel and in no acute distress. Head/Face: Normocephalic, atraumatic. Eyes: Pupils equal round and reactive to light, extra-ocular motions intact. Lids and lashes normal. Conjunctiva and sclera are non-icteric and not injected. Cornea within normal limits. Periorbital areas with no swelling, redness, or edema. ENT: Nares patent. No nasal discharge, no septal abnormalities noted. Tympanic membranes are normal and external auditory canals are clear. Oropharynx with no redness, swelling, or masses, exudates, or evidence of obstruction, uvula midline. Mucous membranes moist. Neck: Trachea midline, no thyromegaly or masses palpated, and no cervical lymphadenopathy. Supple, full range of motion without nuchal rigidity, or vertebral point tenderness. No Meningismus. Chest/axilla: Normal chest wall appearance and motion. Nontender with no deformity. No lesions are appreciated. Cardiovascular: Regular rate and rhythm with a normal S1 and S2. No gallops, murmurs, or rubs. Normal PMI, no JVD. No pulse deficits. Respiratory: Lungs have equal breath sounds bilaterally, clear to auscultation and percussion. No rales, rhonchi or wheezes noted. No increased work of breathing, no retractions or nasal flaring. Abdomen/GI: Soft, non-tender, with normal bowel sounds. No distension or tympany. No guarding or rebound. No evidence of tenderness throughout. Female : Normal external genitalia. Skin: Warm, dry with normal turgor. Normal color with no rashes, no lesions, and no evidence of cellulitis. Neuro: Awake and alert, GCS 15, oriented to person, place, time, and situation. Cranial nerves II-XII grossly intact. Motor strength 5/5 in all extremities. Sensory grossly intact. Cerebellar exam normal. Normal gait. Psych: Awake, alert, with orientation to person, place and time. Behavior, mood, and affect are within normal limits. 01:20 Back: pain, that is mild, ROM is painful, normal spinal alignment noted, CVA tenderness, is absent, vertebral tenderness, is not appreciated, muscle spasm, is not present. 01:48 ECG was reviewed by the Attending Physician. [facility] Vital Signs: 05/08 22:37 BP 144 / 60; Pulse 84; Resp 22; Temp 98.0; Pulse Ox 100% on R/A; Weight 101.15 kg; da3 Height 5 ft. 2 in. (157.48 cm); 05/09 00:45 BP 145 / 73; Pulse 82; Resp 18; Pulse Ox 97% on R/A; Pain 8/10; lp1 02:00 BP 126 / 72; Pulse 80; Resp 18; Pulse Ox 98% on R/A; lp1 04:30 BP 118 / 61; Pulse 82; Resp 18; Pulse Ox 94% on R/A; lp1 05:28 BP 110 / 47; Pulse 82; Resp 18; Pulse Ox 95% on R/A; lp1 05/08 22:37 Body Mass Index 40.79 (101.15 kg, 157.48 cm) da3 MDM: 00:38 Patient medically screened. [facility] 01:24 Differential diagnosis: bursitis, arthritis, strain. Data reviewed: vital signs, nurses [facility] notes, lab test result(s), EKG, radiologic studies, CT scan, doppler, plain films. Data interpreted: child monitor: rate is 82 beats/min, rhythm is regular, Pulse oximetry: on room air is 97 %. Test interpretation: by ED physician or midlevel provider: ECG, plain radiologic studies. Counseling: I had a detailed discussion with the patient and/or guardian regarding: the historical points, exam findings, and any diagnostic results supporting the discharge/admit diagnosis, lab results, radiology results. 05/09 01:20 Order name: Basic Metabolic Panel [facility] 05/09 01:20 Order name: CBC with Diff [facility] 05/09 01:20 Order name: LFT's [facility] 05/09 01:20 Order name: Magnesium [facility] 05/09 01:20 Order name: NT PRO-BNP [facility] 05/09 01:20 Order name: PT-INR [facility] 05/09 01:20 Order name: Troponin (emerg Dept Use Only) [facility] 05/09 01:20 Order name: XRAY Chest (1 view) [facility] 05/09 02:48 Order name: COVID-19 SARS RT PCR (Document "Date of Onset" if Symptomatic) lp1 05/09 04:46 Order name: Urine Dipstick-Ancillary [facility] 05/09 01:20 Order name: EKG; Complete Time: 01:21 [facility] 05/09 01:20 Order name: Cardiac monitoring; Complete Time: 01:43 [facility] 05/09 01:20 Order name: EKG - Nurse/Tech; Complete Time: 01:43 [facility] 05/09 01:20 Order name: IV Saline Lock; Complete Time: 02:32 [facility] 05/09 01:20 Order name: Labs collected and sent; Complete Time: 02:32 [facility] 05/09 01:20 Order name: O2 Per Protocol; Complete Time: 02:32 [facility] 05/09 01:20 Order name: US Extremity Venous Unilateral Ltd [facility] 05/09 02:19 Order name: Extremity Venous Uni Ltd [facility] 05/09 01:20 Order name: O2 Sat Monitoring; Complete Time: 02:32 [facility] 05/09 01:23 Order name: Urine Dipstick-Ancillary (obtain specimen); Complete Time: 04:48 [facility] EC:48 Rate is 83 beats/min. Rhythm is regular. QRS [place] is Normal. IN interval is normal. QRS leonel interval is normal. QT interval is normal. No Q waves. T waves are Normal. No ST changes noted. Clinical impression: Normal ECG and No evidence of ischemia. Interpreted by me. Reviewed by me. Administered Medications: 02:32 Drug: NS 0.9% 1000 ml Route: IV; Rate: 1 bolus; Site: right forearm; lp1 04:49 Follow up: IV Status: Completed infusion; IV Intake: 1000ml lp1 03:03 Drug: Lovenox (enoxaparin) 100 mg Route: Sub-Q; Site: right lower abdomen; lp1 05:42 Follow up: Response: No adverse reaction lp1 04:20 Not Given (Physician Discretion; Per KAVITA Harden): morphine 4 mg IVP once; RASS on lp1 ADMIN: Combtv4, Very Agttd3, Agttd2, Rstlss1, AlertClm0, Drwsy-1, Lt Sdtn-2, Mod Sdtn-3, Dp Sdtn-4, UnArsble-5 04:20 Not Given (Physician Discretion; Per KAVITA Harden): Valium (diazepam) 5 mg PO once lp1 05:29 Not Given (Patient Refused): Zofran (Ondansetron) 4 mg IVP once; over 2 minutes lp1 05:42 Not Given (Patient Refused): Decadron - Dexamethasone 10 mg IVP once lp1 05:42 Not Given (Patient Refused): Ketorolac 30 mg IVP once lp1 Disposition Summary: 05/09/21 02:46 Hospitalization Ordered Hospitalization Status: Observation leonel Provider: Johan Schwab cha Location: Telemetry/MedSurg (observation)(05/09/21 02:46) leonel Condition: Stable(05/09/21 02:46) leonel Problem: new(05/09/21 02:46) leonel Symptoms: have improved(05/09/21 02:46) leonel Bed/Room Type: Standard leonel Room Assignment: 408(05/09/21 04:47) Diagnosis - Sciatica, left side - L3-4 herniated disc leonel - Acute embolism and thrombosis of deep veins of lower extremity leonel - Type 2 diabetes mellitus with hyperglycemia leonel Forms: - Medication Reconciliation Form leonel - SBAR form leonel Signatures: Dispatcher [employer] Jose Cota MD MD cha Pena, Laura RN RN lp1 Danielle Moraes RN RN Alexis Rowley RN RN da3 Corrections: (The following items were deleted from the chart) 01:40 01:21 Knee Left 3 View+RAD.RAD.BRZ ordered. EDMS EDMS 01:40 01:21 Hip Left 2 View+RAD.RAD.BRZ ordered. EDMS EDMS 02:09 01:21 Spine Lumbar Wo Con+CT.RAD.BRZ ordered. EDMS EDMS 02:09 01:21 Pelvis Wo Cont+CT.RAD.BRZ ordered. EDMS EDMS 02:19 02:00 Extrem Venous W Compression Jason+US.RAD.BRZ ordered. EDMS EDMS 02:19 02:19 Home leonel leonel 02:19 02:19 new leonel leonel 02:19 02:19 have improved leonel leonel 02:19 02:19 Stable leonel leonel 02:19 02:19 Left sided colitis - ascending, distal decending, sigmoid, transverse, and leonel proximal decending leonel 02:19 02:19 Abdominal pain, Generalized leonel leonel 02:19 02:19 Diarrhea, unspecified leonel leonel 04:47 02:46 leonel cg
[2021-05-09 02:52] LABS: Absolute Lymphocytes (CBC) 3.3 K/uL (0.7-4.9); Basophils % 0.5 % (0-1.3); Hematocrit 38.5 % (36.0-45.0); Lymphocytes % 29.7 % (15.3-44.8); MPV 8.1 fL (7.6-11.3); RBC Red Blood Cell Count 4.73 M/uL (3.86-4.86)
[2021-05-09 02:53] LABS: Protime INR 0.97
[2021-05-09] MEDS ORDERED: DIAZEPAM 5 MG TABLET ONE (02:53)
[2021-05-09] MEDS ORDERED: dexAMETHasone 10 MG/ML VIAL ONE (02:53)
[2021-05-09] MEDS ORDERED: KETOROLAC 30 MG/ML INJ ONE (02:54)
[2021-05-09] MEDS ORDERED: ENOXAPARIN 100 MG/ML SYR SQ ONE (02:54)
[2021-05-09 03:06] LABS: ALT/SGPT 31 U/L (12-78); AST/SGOT 19 U/L (15-37); Albumin 3.4 g/dL (3.4-5.0); Alkaline Phosphatase 102 U/L (45-117); BUN Blood Urea Nitrogen 23 mg/dL (7-18); Bicarbonate 22 mmol/L (21-32); Bilirubin Direct 0.1 mg/dL (0-0.2); Bilirubin Total 0.4 mg/dL (0.2-1.0); Glucose Level 211 mg/dL (74-106); Magnesium 2.5 mg/dL (1.8-2.4); NT PRO-BNP 64 pg/mL (<125); Potassium 3.6 mmol/L (3.5-5.1); Protein, Total 7.8 g/dL (6.4-8.2); Sodium Level 141 mmol/L (136-145); Troponin (Emerg Dept Use Only) < 0.02 ng/mL (0.0-0.045)
--- NOTE | 2021-05-09 04:41 | P.HP ---
Certification for Inpatient Patient admitted to: Observation With expected LOS: <2 Midnights Patient will require the following post-hospital care: None Practitioner: I am a practitioner with admitting privileges, knowledge of patient current condition, hospital course, and medical plan of care. Services: Services provided to patient in accordance with Admission requirements found in Title 42 Section 412.3 of the Code of Federal Regulations Patient History Date of Service: 05/09/21 Primary Care Provider: LUI Reason for admission: DVT, sciatica History of Present Illness: Ms. Barnes is a 65 yo F with DM and HTN who presents with pain radiating from her left hip to her left knee. She has chronic pain in both legs for several years and was told recently that she has a 'bulging disc' in her lower back. She says her pain is manageable right now. She says she has a sedentary lifestyle due to her chronic pain. Venous US on the left leg revealed a DVT. CT scan of the lumbar spine showed a suspected left paracentral disc protrusion at L3-L4 which could explain left-sided radiculopathy. Allergies No Known Drug Allergies Allergy (Unverified 10/07/17 21:20) Unknown NKDA Allergy (Uncoded 07/14/15 23:58) Unknown No Known Drug Allergy (Uncoded 12/10/16 20:06) Unknown No Known Drug Allerg Allergy (Uncoded 09/07/16 13:24) Unknown Home Medications: Citalopram Hydrobromide [Celexa] 40 mg PO DAILY 07/18/11 Metformin HCl [Glucophage*] 1,000 mg PO BID #0 07/19/11 - Past Medical/Surgical History Diabetic: Yes -: DM -: HTN -: TIA -: wrist surgery - Family History Family History: Reviewed- Non-Contributory - Social History Smoking Status: Former smoker Alcohol use: No CD- Drugs: No Caffeine use: No Place of Residence: Home Review of Systems 10-point ROS is otherwise unremarkable General: Unremarkable Eyes: Unremarkable ENT: Unremarkable Respiratory: Unremarkable Cardiovascular: Unremarkable Gastrointestinal: Unremarkable Genitourinary: Unremarkable Musculoskeletal: Back Pain, Leg Pain, As per HPI Integumentary: Unremarkable Neurological: Unremarkable Lymphatics: Unremarkable Physical Examination - Physical Exam General: In no apparent distress HEENT: Atraumatic, PERRLA, Mucous membr. moist/pink, EOMI, Sclerae nonicteric Neck: Supple, 2+ carotid pulse no bruit, No LAD, Without JVD or thyroid abnormality Respiratory: Clear to auscultation bilaterally, Normal air movement Cardiovascular: Regular rate/rhythm, Normal S1 S2 Gastrointestinal: Normal bowel sounds, No tenderness Musculoskeletal: Tenderness Integumentary: Tenderness/swelling Neurological: Normal speech, Normal strength at 5/5 x4 extr, Normal tone Lymphatics: No axilla or inguinal lymphadenopathy - Studies Laboratory Data (last 24 hrs) 05/09/21 02:25: PT 11.1, INR 0.97 05/09/21 02:25: WBC 11.10 H, Hgb 12.4, Hct 38.5, Plt Count 272 05/09/21 02:25: Sodium 141, Potassium 3.6, BUN 23 H, Creatinine 1.26, Glucose 211 H, Magnesium 2.5 H, Total Bilirubin 0.4, AST 19, ALT 31, Alkaline Phosphatase 102 Assessment and Plan - Problems (Diagnosis) (1) Left leg DVT Current Visit: Yes Status: Acute Qualifiers: Affected thrombotic vein of extremity: unspecified vein of extremity Chronicity: acute Qualified Code(s): I82.402 - Acute embolism and thrombosis of unspecified deep veins of left lower extremity (2) Lumbar herniated disc Current Visit: Yes Status: Chronic (3) T2DM (type 2 diabetes mellitus) Current Visit: Yes Status: Chronic 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 snf insulin use status Diabetes mellitus complication status: without complication Qualified Code(s): E11.9 - Type 2 diabetes mellitus without complications (4) HTN (hypertension) Current Visit: Yes Status: Chronic Qualifiers: Hypertension type: primary hypertension Qualified Code(s): I10 - Essential (primary) hypertension - Plan continue full dose lovenox MRI of the lumbar spine in the AM continue pain management as needed sliding scale insulin and accuchecks hydralazine PRN for BP spikes reconcile and continue home medications PT consulted Discharge Plan: Home Plan to discharge in: 24 Hours - Advance Directives Does patient have a Living Will: No Does patient have a Durable POA for Healthcare: No - Code Status/Comfort Care Code Status Assessed: Yes (full code ) Critical Care: No Time Spent Managing Pts Care (In Minutes): 70
[2021-05-09 04:46] LABS: Urine Blood Negative (Negative); Urine Glucose 2+ (Negative); Urine Protein Negative (Negative); Urine pH 6.5 (5.0-7.0)
[2021-05-09] MEDS ORDERED: ONDANSETRON 4 MG/2 ML VIAL IV PRN (05:28)
[2021-05-09] MEDS ORDERED: HYDRALAZINE HCL 20 MG/ML VIAL IV PRN (05:28)
[2021-05-09 06:08] VITALS: BMI 40.4
[2021-05-09] MEDS: MORPHINE 2 MG/ML SYR IV PRN ×4 (07:22→20:55)
[2021-05-09] MEDS: INSULIN -REGULAR HUMAN 50 UNIT/0.5 ML ML SQ SCH ×4 (07:30→20:54)
--- NOTE | 2021-05-09 08:23 | RAD REPORT ---
EXAM DESCRIPTION: RAD - Chest Single View - 05/09/2021 1:39 am CLINICAL HISTORY: COUGH COMPARISON: May 2020 TECHNIQUE: AP portable chest image was obtained 05/09/2021 1:39 am . FINDINGS: No focal mass or consolidation. Lung volumes are low. Diffusely prominent interstitial pat tern is present. This is not substantially different from prior imaging. Severity of this chronic pat tern could mask interstitial edema or infiltrate. No hilar mass or lymphadenopathy seen. Heart and vasculature are normal. No measurable pleural effusion and no pneumothorax. No acute bony abnormality seen. No acute aortic findings suspected. IMPRESSION: Diffusely prominent interstitial pattern not substantially different from the June 15 study. Severity of chronic pattern can mask interstitial edema or viral infiltrate.
--- NOTE | 2021-05-09 08:26 | RAD REPORT ---
EXAM DESCRIPTION: US - Extremity Venous Uni Ltd - 05/09/2021 2:20 am CLINICAL HISTORY: PAINleft leg Preliminary findings provided at the time of the study. COMPARISON: None. TECHNIQUE: Real-time sonographic evaluation of the left lower extremity deep venous system was perfo rmed. FINDINGS: Normal compressibility, flow augmentation, phasic flow and spontaneous flow are identified in the left lower extremity common femoral, popliteal and posterior tibial veins. Proximal portion o f the femoral vein shows only partial compression. There is low-level internal echogenicity within th e lumen. Deep venous thrombosis is suspected in this location. No mass or abnormal fluid collection in the soft tissues. IMPRESSION: Deep venous thrombosis in the proximal portion of the left femoral vein. Age is uncertai n but acute thrombus cannot be excluded.
--- NOTE | 2021-05-09 08:28 | RAD REPORT ---
EXAM DESCRIPTION: US - Extremity Venous Uni Ltd - 05/09/2021 2:20 am CLINICAL HISTORY: PAINright leg Preliminary findings provided at the time of the study. COMPARISON: None. TECHNIQUE: Real-time sonographic evaluation of the right lower extremity deep venous systems was per formed. FINDINGS: Normal compressibility, flow augmentation, phasic flow and spontaneous flow are identified in the right lower extremity common femoral, popliteal and posterior tibial veins. The femoral vein from proximal to distal portion shows only partial compression with low-level internal echo changes w ithin the lumen. A small 2-3 centimeter popliteal fossa cyst seen. No cyst rupture or hemorrhage. IMPRESSION: Deep venous thrombosis in the right femoral vein. Age is uncertain but acute DVT cannot be excluded. Small popliteal fossa cyst.
--- NOTE | 2021-05-09 08:40 | RAD REPORT ---
EXAM DESCRIPTION: MRI - Lumbar Spine Wo Con - 05/09/2021 8:09 am CLINICAL HISTORY: herniated disc, back pain, left lower extremity radiculopathy COMPARISON: Spine Lumbar Wo Con dated 05/05/2021 TECHNIQUE: Sagittal T1-weighted, T2-weighted and T2-STIR weighted sequences were obtained. Axial T1 -weighted and heavily T2-weighted sequenceswere obtained through the lumbar disc levels. FINDINGS: Lumbar bodies are normal in height. No subluxation abnormality seen. There is straightenin g of the usual lumbar lordosis. Scattered fatty marrow degenerative changes are present. No suspiciou s marrow signal. No paraspinal masses. Incidental note of hemangiomas in the superior aspect of L1 an d in the right anterior L4 body. Conus is normal with no clumping or thickening of the cauda equina. T12-L1 level: Minimal disc bulge with no canal or foramen stenosis. L1-2 level: Disc desiccation with loss in disc height. Right-side central canal disc herniation is pr esent measuring 5 mm AP x 10 mm TR x 10 mm CC. This flattens the right anterior thecal sac but does n ot cause central spinal stenosis. No foraminal stenosis. Facet degenerative changes minimal. L2-3 level: Disc is thinned and desiccated. Circumferential bulging of disc material is present. In t he exit foramina the protruding disc material causes mild stenosis. Perineural fat still surrounds th e exiting nerve roots. Midline central canal diameter is 11 mm. Facet degenerative changes mild with no significant ligamentous thickening. L3-4 level: Disc is thinned and desiccated. There is circumferential bulging of disc material and pro minent endplate spurring changes. Protruding disc material and endplate spurring changes cause modera te bilateral foraminal stenosis. Small amount of perineural fat is still present. Protruding disc mat erial across the central canal does not cause measurable spinal stenosis. Midline canal diameter is 1 1-12 mm. Facet joint degenerative change and ligamentous thickening changes are present partially con tributing to foramina and canal encroachment. A large low-density mass-effect is present posterior to the L4 body, offset to the left. This measure s approximately 8 mm AP x 14 mm TR x 19 mm CC appears subligamentous in location. This has the appear ance of an extruded disc fragment probably originating from the L3 level. Canal is stenotic to 8 mm a t the mid L4 level due to the mass effect of the extruded disc. L4-5 level: Disc is desiccated with slight loss in disc height. Advanced endplate spurring and circum ferential disc bulge changes are present. Facet prominent hypertrophic degenerative changes are prese nt. The protruding disc material and facet hypertrophy cause moderate severity bilateral foraminal st enosis. Very little perineural fat remains. In the central canal the circumferential protruding disc material appears to be a broad-based herniation. Ligamentous thickening changes are present. Canal is borderline to mildly stenotic at 9 mm. L5-S1 level: No herniation or significant degree of disc bulge. Prominent right-sided facet hypertrop hic degenerative changes are present. No canal or foramen stenosis. IMPRESSION: Large extruded subligamentous disc fragment midline and left-side of the central canal p osterior to the L4 body. This probably is sourced from the L3-4 disc level. Central spinal stenosis t o 8 mm present at the mid L4 level. Both the L3-4 and L4-5 disc levels have additional significant disc bulge and endplate spurring reynolds es along with posterior element degenerative changes. Borderline to mild canal stenosis is evident. Multilevel mild to moderately severe foraminal stenosis detailed at each level in the body of the rep ort.
[2021-05-09] MEDS ORDERED: POTASSIUM CL SA 10 MEQ TAB PO ONE (09:00)
[2021-05-09] MEDS: NA CHLORIDE 0.9% 1,000 ML IV SCH ×2 (09:26→20:58)
[2021-05-09] MEDS: ACETAMINOPHEN 500 MG TAB PO PRN ×2 (10:51→14:32)
--- NOTE | 2021-05-09 12:27 | EKG ---
Test Date: 2021-05-09 Test Time: 01:42:18 [employer] Attendant: GERA MEASUREMENT RESULTS: Intervals: Rate: 83 GA: 162 QRSD: 82 QT: 402 QTc: 472 Blackey: P: 56 GA: 162 QRS: 40 T: 63 INTERPRETIVE STATEMENTS: Normal sinus rhythm Normal ECG Compared to ECG 06/11/2020 16:43:32 No significant changes Electronically Signed On 05-09-21 12:25:41 [employer] WORKER by Mario Sal
[2021-05-09] MEDS: ENOXAPARIN 100 MG/ML SYR SQ SCH (14:32)
[2021-05-09] MEDS ORDERED: dexAMETHasone 4 MG/ML VIAL IV ONE (18:00)
[2021-05-09] MEDS: BACLOFEN 10 MG TAB PO SCH (20:58)
[2021-05-10 03:57] LABS: Absolute Lymphocytes (CBC) 1.4 K/uL (0.7-4.9); Basophils % 0.6 % (0-1.3); Hematocrit 38.5 % (36.0-45.0); MPV 8.6 fL (7.6-11.3); RBC Red Blood Cell Count 4.69 M/uL (3.86-4.86)
[2021-05-10 04:31] LABS: Bilirubin Total 0.3 mg/dL (0.2-1.0); Magnesium 2.2 mg/dL (1.8-2.4); Potassium 4.3 mmol/L (3.5-5.1); Protein, Total 6.9 g/dL (6.4-8.2); Thyroid Stimulating Hormone 0.924 uIU/mL (0.360-3.740)
[2021-05-10] MEDS: ENOXAPARIN 100 MG/ML SYR SQ SCH ×2 (04:35→14:14)
[2021-05-10] MEDS: MORPHINE 2 MG/ML SYR IV PRN ×3 (05:15→14:14)
[2021-05-10] MEDS: ACETAMINOPHEN 500 MG TAB PO PRN ×2 (07:41→15:34)
[2021-05-10] MEDS: BACLOFEN 10 MG TAB PO SCH (07:48)
[2021-05-10] MEDS: NA CHLORIDE 0.9% 1,000 ML IV SCH ×2 (08:08→09:36)
[2021-05-10 08:31] VITALS: TEMP 98.1
[2021-05-10] MEDS: INSULIN -REGULAR HUMAN 50 UNIT/0.5 ML ML SQ SCH ×3 (08:31→17:33)
[2021-05-10] MEDS ORDERED: SERTRALINE HCL 100 MG TAB PO SCH (09:00)
[2021-05-10] MEDS ORDERED: HOME MED 1 EA UNK (Bupropion Hcl [Wellbutrin] 75 MG Tablet) PO SCH (09:00)
[2021-05-10] MEDS: GABAPENTIN 100 MG CAP PO SCH ×3 (09:00→14:14)
[2021-05-10] MEDS ORDERED: HOME MED 1 EA UNK (Linaclotide [Linzess] 290 MCG Capsule) PO SCH (09:00)
[2021-05-10] MEDS ORDERED: INSULIN GLARGINE 100 UNIT/ML SQ SCH (09:00)
[2021-05-10] MEDS ORDERED: ALOGLIPTIN BENZOATE 12.5 MG TABLET PO SCH (09:00)
[2021-05-10] MEDS ORDERED: ASPIRIN EC 81 MG TAB PO SCH (09:00)
[2021-05-10] MEDS ORDERED: HOME MED 1 EA UNK (Empagliflozin [Jardiance] 10 MG Tablet) PO SCH (09:00)
[2021-05-10] MEDS ORDERED: TOPIRAMATE 25 MG TAB PO SCH (09:00)
[2021-05-10] MEDS ORDERED: CLOPIDOGREL 75 MG TABLET PO SCH (09:00)
[2021-05-10] MEDS ORDERED: DICLOFENAC SOD D.R. 75 MG TAB PO SCH (09:00)
[2021-05-10] MEDS ORDERED: LOSARTAN POTASSIUM 50 MG TABLET PO SCH (09:00)
[2021-05-10 11:23] VITALS: O2SAT 100
[2021-05-10 16:59] VITALS: BP 121/65
[2021-05-10] MEDS ORDERED: METFORMIN HCL 500 MG TAB PO SCH (17:00)
[2021-05-10] MEDS ORDERED: ROSUVASTATIN 10 MG TAB PO SCH (21:00)
== END 2021-05-10 18:30 | disposition home or self-care (01) | DRG 552 ==
LOC: ER 22:05 → ERHOLD 05-09 03:35 → 4TH 05-09 04:57
PROVIDERS: ADMIT Hospitalist; ATTEND Hospitalist
DX: M51.16 Intervertebral disc disorders with radiculopathy, lumbar region (principal); I82.412 Acute embolism and thrombosis of left femoral vein; E11.65 Type 2 diabetes mellitus with hyperglycemia; I10 Essential (primary) hypertension; Z79.82 Long term (current) use of aspirin; Z79.02 Long term (current) use of antithrombotics/antiplatelets; Z86.73 Personal history of transient ischemic attack (TIA), and cerebral infarction without residual deficits; Z79.84 Long term (current) use of oral hypoglycemic drugs; Z79.899 Other long term (current) drug therapy; Z87.891 Personal history of nicotine dependence; Z20.822 Contact with and (suspected) exposure to COVID-19
CPT/HCPCS: 36415; 71045; 72148; 80048; 80053; 80061; 80076; 81003; 82947; 83036; 83735; 83880; 84100; 84439; 84443; 84484; 85025; 85610; 93005; 93971; 96360; 96361; 96372; 97116; 97161; 97530; 99285; J1100; J1650; J2270; J2405; J7030; U0003

== ENCOUNTER 2022-04-11 16:53 | Emergency (ER) | payer OTHER ==
[2022-04-11] MEDS ORDERED: IBUPROFEN 400 MG TAB ONE (17:25)
--- NOTE | 2022-04-11 18:00 | RAD REPORT ---
EXAM DESCRIPTION: RAD - Ribs Left - 04/11/2022 5:37 pm CLINICAL HISTORY: fall, pain COMPARISON: Chest Single View dated 05/09/2021 FINDINGS: No displaced left-sided rib fractures seen. No underlying pneumothorax.
--- NOTE | 2022-04-11 19:15 | EDPHYS ---
Physician Documentation [facility] Name: Prabha Barnes Age: 66 yrs Sex: Female : 1955 Arrival Date: 04/11/2022 Time: 17:00 Bed DIS3 Private MD: ED Physician Jose Yanez HPI: 04/11 17:30 This 66 yrs old Female presents to ER via Wheelchair with complaints of rib pain. cp 17:30 Details of fall: The patient fell from an upright position, while walking. cp 17:30 Onset: The symptoms/episode began/occurred last week. cp 17:30 Associated injuries: The patient sustained injury to the chest, specifically the left cp lateral rib area, pain with breathing, pain with movement, tenderness. Severity of symptoms: in the emergency department the symptoms are unchanged, despite home interventions. Historical: - Allergies: 17:16 NKDA; ll1 - PMHx: 17:16 constipation; Diabetes - NIDDM; Depression; TIA; ll1 - Immunization history:: Client reports receiving the 2nd dose of the Covid vaccine. - Social history:: Smoking status: Patient denies any tobacco usage or history of. ROS: 17:35 Constitutional: Negative for body aches, chills, fever, poor PO intake. cp 17:35 Eyes: Negative for injury, pain, redness, and discharge. cp 17:35 Neck: Negative for pain with movement, pain at rest, stiffness, bony tenderness. 17:35 Cardiovascular: Positive for chest pain, of the left lateral rib area, Negative for edema, palpitations. 17:35 Respiratory: Negative for cough, shortness of breath, wheezing. 17:35 Abdomen/GI: Negative for abdominal pain, nausea, vomiting, and diarrhea. 17:35 Back: Negative for pain at rest, pain with movement. 17:35 MS/extremity: Negative for injury or acute deformity, decreased range of motion. 17:35 Neuro: Negative for altered mental status, dizziness, gait disturbance, headache, weakness. 17:35 All other systems are negative. Exam: 17:40 Constitutional: The patient appears in no acute distress, alert, awake, cp non-diaphoretic, non-toxic, well developed, well nourished, obese. 17:40 Head/Face: Normocephalic, atraumatic. cp 17:40 Neck: C-spine: vertebral tenderness, is not appreciated, crepitus, is not appreciated, ROM/movement: is normal, is supple, without pain, no range of motions limitations, no nuchal rigidity. 17:40 Chest/axilla: Inspection: normal, Palpation: crepitus, is not appreciated, tenderness, that is moderate, of the left lateral rib area, that partially reproduces the patient's complaints. 17:40 Cardiovascular: Rate: normal, Rhythm: regular, Edema: is not appreciated, JVD: is not appreciated. 17:40 Respiratory: the patient does not display signs of respiratory distress, Respirations: normal, no use of accessory muscles, no retractions, labored breathing, is not present, Breath sounds: are clear throughout, no decreased breath sounds, no stridor, no wheezing. 17:40 Abdomen/GI: Inspection: obese Bowel sounds: active, all quadrants, Palpation: abdomen is soft and non-tender, in all quadrants. 17:40 Back: vertebral tenderness, is not appreciated. 17:40 Musculoskeletal/extremity: Exam is negative for decreased range of motion, deformity, injury. 17:40 Skin: no rash present. 17:40 Neuro: Orientation: to person, place \T\ time. Mentation: is normal, Motor: moves all fours, strength is normal, Sensation: is normal, Gait: is steady. Vital Signs: 17:14 BP 127 / 68; Pulse 82; Resp 17; Temp 98.6; Pulse Ox 100% ; Weight 98.88 kg; Height 5 ll1 ft. 2 in. (157.48 cm); Pain 9/10; 17:14 Body Mass Index 39.87 (98.88 kg, 157.48 cm) ll1 MDM: 18:49 Patient medically screened. leonel 19:00 Differential diagnosis: closed head injury, contusion, fracture, multiple trauma. cp 19:14 Data reviewed: vital signs, nurses notes, radiologic studies, plain films. cp 19:14 Counseling: I had a detailed discussion with the patient and/or guardian regarding: the cp historical points, exam findings, and any diagnostic results supporting the discharge/admit diagnosis, radiology results, the need for outpatient follow up, a family practitioner, to return to the emergency department if symptoms worsen or persist or if there are any questions or concerns that arise at home. Response to treatment: the patient's symptoms have mildly improved after treatment, and as a result, I will discharge patient. 04/11 17:20 Order name: XRAY Ribs LEFT cp Administered Medications: 17:23 Not Given (patient drovee): Hydrocodone-Acetaminophen (7.5 mg-325 mg) 1 tabs PO once; ll1 RASS on ADMIN: Combtv4, Very Agttd3, Agttd2, Rstlss1, AlertClm0, Drwsy-1, Lt Sdtn-2, Mod Sdtn-3, Dp Sdtn-4, UnArsble-5 17:26 Drug: Ibuprofen 800 mg Route: PO; ll1 19:53 Follow up: Response: No adverse reaction; Pain is decreased vc1 19:53 Drug: Otis (HYDROcodone-acetaminophen) (7.5 mg-325 mg) 1 tabs Route: PO; vc1 19:53 Follow up: Response: No adverse reaction; Medication administered at discharge. vc1 Disposition: 04/12 09:24 Co-signature as Attending Physician, Jose Yanez MD I agree with the assessment and leonel plan of care. Disposition Summary: 04/11/22 19:14 Discharge Ordered Location: Home cp Problem: new cp Symptoms: have improved cp Condition: Stable cp Diagnosis - Fall on same level, unspecified cp - Chest pain, unspecified - left lower lateral rib area cp Followup: cp - With: Private Physician - When: 2 - 3 days - Reason: Recheck today's complaints Discharge Instructions: - Discharge Summary Sheet cp - Rib Contusion cp Forms: - Medication Reconciliation Form cp - Thank You Letter cp - Antibiotic Education cp - Prescription Opioid Use cp Prescriptions: - Ibuprofen 800 mg Oral Tablet - take 1 tablet by ORAL route every 8 hours As needed take with food; 30 tablet; cp Refills: 0, Product Selection Permitted Signatures: Dispatcher [employer] Jose Cota MD MD cha Page, Corey, PA PA cp Lewis, Lynsay, RN RN ll1 Nessa Bowles RN RN vc1
--- NOTE | 2022-04-11 19:15 | ER ---
Nurse's Notes [facility] Name: Prabha Barnes Age: 66 yrs Sex: Female : 1955 Arrival Date: 04/11/2022 Time: 17:00 Bed DIS3 Private MD: Diagnosis: Fall on same level, unspecified;Chest pain, unspecified-left lower lateral rib area Presentation: 04/11 17:14 Chief complaint: Patient states: Tripped on uneven ground on Saturday. L trunk pain with ll1 certain movements since. States her knee is already getting better. Coronavirus screen: Vaccine status: Patient reports receiving the 2nd dose of the covid vaccine. Client denies travel out of the [place] in the last 14 days. At this time, the client does not indicate any symptoms associated with coronavirus-19. Ebola Screen: Patient denies travel to an Ebola-affected area in the 21 days before illness onset. Initial Sepsis Screen: Does the patient meet any 2 criteria? No. Patient's initial sepsis screen is negative. Does the patient have a suspected source of infection? Yes: Bone or joint infection. Risk Assessment: Do you want to hurt yourself or someone else? Patient reports no desire to harm self or others. Onset of symptoms was April 06, 2022. 17:14 Method Of Arrival: Wheelchair ll1 17:14 Acuity: CAITLYN 4 ll1 Triage Assessment: 17:16 General: Appears uncomfortable, Behavior is cooperative, appropriate for age. Pain: ll1 Complains of pain in L trunk Pain currently is 9 out of 10 on a pain scale. Quality of pain is described as aching, Aggravated by increased activity. Neuro: No deficits noted. Cardiovascular: No deficits noted. Musculoskeletal: Reports pain in L trunk. Historical: - Allergies: 17:16 NKDA; ll1 - PMHx: 17:16 constipation; Diabetes - NIDDM; Depression; TIA; ll1 - Immunization history:: Client reports receiving the 2nd dose of the Covid vaccine. - Social history:: Smoking status: Patient denies any tobacco usage or history of. Screenin:53 Abuse screen: Denies threats or abuse. Nutritional screening: No deficits noted. vc1 Tuberculosis screening: No symptoms or risk factors identified. Fall Risk None identified. Vital Signs: 17:14 BP 127 / 68; Pulse 82; Resp 17; Temp 98.6; Pulse Ox 100% ; Weight 98.88 kg; Height 5 ll1 ft. 2 in. (157.48 cm); Pain 9/10; 17:14 Body Mass Index 39.87 (98.88 kg, 157.48 cm) ll1 ED Course: 17:00 Patient arrived in ED. as 17:06 Jose Samano PA is PHCP. cp 17:06 Jose Yanez MD is Attending Physician. cp 17:16 Triage completed. ll1 17:17 Arm band placed on. ll1 17:38 XRAY Ribs LEFT In Process Unspecified. EDMS 19:54 No provider procedures requiring assistance completed. Patient did not have IV access vc1 during this emergency room visit. Administered Medications: 17:23 Not Given (patient drovee): Hydrocodone-Acetaminophen (7.5 mg-325 mg) 1 tabs PO once; ll1 RASS on ADMIN: Combtv4, Very Agttd3, Agttd2, Rstlss1, AlertClm0, Drwsy-1, Lt Sdtn-2, Mod Sdtn-3, Dp Sdtn-4, UnArsble-5 17:26 Drug: Ibuprofen 800 mg Route: PO; ll1 19:53 Follow up: Response: No adverse reaction; Pain is decreased vc1 19:53 Drug: Brooks (HYDROcodone-acetaminophen) (7.5 mg-325 mg) 1 tabs Route: PO; vc1 19:53 Follow up: Response: No adverse reaction; Medication administered at discharge. vc1 Medication: 19:54 VIS not applicable for this client. vc1 Outcome: 19:14 Discharge ordered by MD. cp 19:54 Discharged to home via wheelchair. vc1 19:54 Condition: good 19:54 Discharge instructions given to patient, Instructed on discharge instructions, follow up and referral plans. medication usage, Demonstrated understanding of instructions, follow-up care, medications, Prescriptions given X 1. 19:54 Patient left the ED. vc1 Signatures: Dispatcher [employer] EDMS Myrna Reyna as Jose Samano PA PA cp Lewis, Lynsay, RN RN ll1 Nessa Bowles RN RN vc1
[2022-04-11] MEDS ORDERED: HYDROCODONE/APAP 7.5/325 MG TAB ONE (19:49)
[2022-04-11 20:12] VITALS: BP 127/68; TEMP 98.6; O2SAT 100
== END 2022-04-11 19:54 | disposition home or self-care (01) ==
LOC: ER 16:53
DX: R07.89 Other chest pain (principal); W18.30XA Fall on same level, unspecified, initial encounter
CPT/HCPCS: 99283